=== PATIENT | female | born 1975 | race African-American/Black ===

== ENCOUNTER 2017-12-02 15:04 | Emergency (ER) | payer SELFPAY ==
[2017-12-02 15:50] LABS: Absolute Lymphocytes (CBC) 2.4 K/uL (0.7-4.9); Absolute Monocytes 0.7 K/uL (0.1-1.3); Basophils % 0.5 % (0-1.3); Eosinophils % 2.5 % (0-4.4); Lymphocytes % 20.9 % (15.3-44.8); MCH 21.5 pg (27.0-35.0); MCV 73.5 fL (80-100); MPV 8.8 fL (7.6-11.3); Monocytes % 5.8 % (3.3-12.3); RBC Red Blood Cell Count 3.13 M/uL (3.86-4.86)
[2017-12-02 16:01] LABS: Potassium 3.6 mmol/L (3.5-5.1)
[2017-12-02] MEDS ORDERED: NA CHLORIDE 0.9% 1,000 ML ONE (16:03)
[2017-12-02 16:43] LABS: Urine Blood 3+ (NEG); Urine Glucose NEGATIVE (NEG); Urine Protein 3+ (NEG); Urine Specific Gravity >1.030 (1.005-1.030); Urine pH 5.5 (5.0-7.0)
[2017-12-02 16:44] LABS: Anisocytosis 2+; Blood Morphology Comment NOTED (NOT SEEN); Hypochromasia 1+; Platelet Estimate ADEQ; Urine White Blood Cell Casts OK
[2017-12-02] MEDS ORDERED: ACETAMINOPHEN 325 MG TABLET ONE (17:05)
[2017-12-02] MEDS ORDERED: DIPHENHYDRAMINE 50 MG/ML VIAL ONE (17:05)
--- NOTE | 2017-12-02 17:16 | RAD REPORT ---
EXAM DESCRIPTION: US - Transvaginal Study Probe - 12/02/2017 4:44 pm CLINICAL HISTORY: Hyper menorrhagia, pelvic pain COMPARISON: None. TECHNIQUE: Endovaginal sonography was performed. FINDINGS: Endometrium in the fundus is 17 mm in thickness. Uterus overall is 13.3 x 8.0 x 7.0 cm. My ometrium is heterogeneous. At the lower uterine segment cervix junction there is a 5 x 4 centimeter h eterogeneous, predominantly echogenic mass. Doppler evaluation shows blood flow within this mass. Mas s is nonspecific. An endometrial based mass is certainly possible. A submucosal low-lying fibroid can have this appearance. No abnormal fluid or old blood collection within the endometrial cavity. The d ominant mass does not likely obstruct the endometrial canal. Both ovaries are identified. No abnormal blood flow pattern of either ovary. No dominant ovarian or a dnexal mass. No abnormal free fluid collection. IMPRESSION: Large 5 x 4 cm mass at the lower uterine segment cervix junction. This is most commonly a low positioned uterine fibroid. An endometrial based mass is also possible. Although large, the mas s does not appear to obstruct the endometrial cavity. No ovarian or adnexal significant finding.
[2017-12-02] MEDS ORDERED: NA CHLORIDE 0.9% 500 ML ONE (17:41)
[2017-12-02] MEDS ORDERED: NA CHLORIDE 0.9% 250 ML ONE (19:39)
[2017-12-02 22:59] LABS: Hematocrit 26.9 % (36.0-45.0)
--- NOTE | 2017-12-02 23:03 | ER ---
Nurse's Notes [facility] Name: Lisette Daniel Age: 42 yrs Sex: Female : 1975 Arrival Date: 12/02/2017 Time: 15:07 Bed 19 Private MD: None, None Diagnosis: Abnormal uterine and vaginal bleeding, unspecified;Leiomyoma of uterus;Iron deficiency anemia Presentation: 12/02 15:12 Presenting complaint: Patient states: Heavy vaginal bleeding for 2 days, reports aj syncopal episode yesterday. Reports slow vaginal bleeding for 2 years. Transition of care: patient was not received from another setting of care. Onset of symptoms was November 30, 2017. Risk Assessment: Do you want to hurt yourself or someone else? Patient reports no desire to harm self or others. Initial Sepsis Screen: Does the patient meet any 2 criteria? No. Patient's initial sepsis screen is negative. Does the patient have a suspected source of infection? No. Patient's initial sepsis screen is negative. Care prior to arrival: None. 15:12 Method Of Arrival: Ambulatory 15:12 Acuity: XU 3 aj Triage Assessment: 15:14 General: Appears in no apparent distress. comfortable, obese, Behavior is calm, aj cooperative, appropriate for age. Pain: Denies pain. Neuro: Level of Consciousness is awake, alert, obeys commands, Oriented to person, place, time, situation, Appropriate for age. Respiratory: Airway is patent Respiratory effort is even, unlabored, Respiratory pattern is regular, symmetrical. : Reports vaginal bleeding that is with clots, heavy flow. Derm: Skin is intact, is healthy with good turgor, Skin is pink, warm \T\ dry. normal. 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 - Social history:: Smoking status: Patient/guardian denies using tobacco. - Ebola Screening: : Patient negative for fever greater than or equal to 101.5 degrees Fahrenheit, and additional compatible Ebola Virus Disease symptoms Patient denies exposure to infectious person Patient denies travel to an Ebola-affected area in the 21 days before illness onset No symptoms or risks identified at this time. Screenin:49 Abuse screen: Denies threats or abuse. Nutritional screening: No deficits noted. em Tuberculosis screening: No symptoms or risk factors identified. Fall Risk None identified. Assessment: 15:21 General: Appears in no apparent distress. comfortable, Behavior is calm, cooperative. em Pain: Denies pain. Neuro: Level of Consciousness is awake, alert, obeys commands, Oriented to person, place, time, situation, Reports dizziness, weakness. Neuro: Reports a syncopal episode. Cardiovascular: Capillary refill < 3 seconds Patient's skin is warm and dry. Cardiovascular: Reports lightheadedness, shortness of breath, Denies chest pain. Respiratory: Airway is patent Respiratory effort is even, unlabored, Respiratory pattern is regular, symmetrical. GI: Abdomen is round obese, Abd is soft and non tender X 4 quads. : Urine is cloudy, blood tinged. : Reports vaginal bleeding that is light flow, since Sunday Denies burning with urination. Derm: Skin is intact, Skin is pink, warm \T\ dry. Musculoskeletal: Range of motion: intact in all extremities. 16:35 Reassessment: Patient appears in no apparent distress at this time. Patient and/or em family updated on plan of care and expected duration. Pain level reassessed. Patient is alert, oriented x 3, equal unlabored respirations, skin warm/dry/pink. pt consented for blood Patient denies pain at this time. 18:05 Reassessment: Patient appears in no apparent distress at this time. Patient and/or mg2 family updated on plan of care and expected duration. Pain level reassessed. Patient is alert, oriented x 3, equal unlabored respirations, skin warm/dry/pink. blood transfusion started. no reactions noted. 19:12 Reassessment: Patient appears in no apparent distress at this time. No changes from jd3 previously documented assessment. Patient and/or family updated on plan of care and expected duration. Pain level reassessed. Patient is alert, oriented x 3, equal unlabored respirations, skin warm/dry/pink. 20:15 Reassessment: Patient appears in no apparent distress at this time. Patient and/or jd3 family updated on plan of care and expected duration. Pain level reassessed. Patient is alert, oriented x 3, equal unlabored respirations, skin warm/dry/pink. 21:06 Reassessment: Patient appears in no apparent distress at this time. Patient and/or jd3 family updated on plan of care and expected duration. Pain level reassessed. Patient is alert, oriented x 3, equal unlabored respirations, skin warm/dry/pink. 22:11 Reassessment: Patient appears in no apparent distress at this time. Patient and/or jd3 family updated on plan of care and expected duration. Pain level reassessed. Patient is alert, oriented x 3, equal unlabored respirations, skin warm/dry/pink. provider reported to redraw H\T\H at 2245. Patient denies pain at this time. 23:30 Reassessment: Patient appears in no apparent distress at this time. Patient and/or jd3 family updated on plan of care and expected duration. Pain level reassessed. Patient is alert, oriented x 3, equal unlabored respirations, skin warm/dry/pink. Patient states feeling better. Vital Signs: 15:14 BP 155 / 72; Pulse 118; Resp 20; Temp 97.9; Pulse Ox 100% on R/A; Weight 127.01 kg; aj Height 5 ft. 1 in. (154.94 cm); 15:49 BP 165 / 74; Pulse 116; Resp 18; Pulse Ox 97% on R/A; Pain 0/10; em 16:54 BP 160 / 83; Pulse 112; Resp 19; Pulse Ox 100% on R/A; Pain 0/10; em 17:10 BP 158 / 87; Pulse 108; Resp 18; Temp 97.5(O); Pulse Ox 100% ; Pain 0/10; mg2 19:13 BP 116 / 60; Pulse 97; Resp 18 S; Pulse Ox 99% on R/A; jd3 20:00 BP 112 / 61; Pulse 94; Resp 17 S; Pulse Ox 98% on R/A; jd3 21:00 BP 113 / 54; Pulse 91; Resp 17 S; Pulse Ox 96% on R/A; jd3 22:11 BP 112 / 67; Pulse 93; Resp 17 S; Pulse Ox 99% on R/A; jd3 23:30 BP 114 / 78; Pulse 102; Resp 18 S; Pulse Ox 99% on R/A; jd3 15:14 Body Mass Index 52.90 (127.01 kg, 154.94 cm) aj ED Course: 15:07 Patient arrived in ED. mr 15:07 None, None is Private Physician. mr 15:14 Jaden Vela LVN is Primary Nurse. em 15:14 Triage completed. aj 15:14 Arm band placed on right wrist. Patient placed in an exam room. aj 15:20 Ender Bauman PA is PHCP. jr8 15:20 Antony Baxter MD is Attending Physician. jr8 15:20 Antony Baxter MD is Attending Physician. jr8 15:21 Patient has correct armband on for positive identification. Placed in gown. Bed in low em position. Call light in reach. Adult w/ patient. 15:49 Initial lab(s) drawn, by me, sent to lab. T\T\S collected, blood band applied to patient. em Inserted saline lock: 20 gauge in right antecubital area, using aseptic technique. Blood collected. 15:58 Notified Nurse Practitioner and/or Physician Wellness Ambassador of a critical lab result(s), la1 Hgb-6.7, Hct 23.0. 16:17 US Transvaginal Study (Probe) In Process Unspecified. EDMS 17:11 No provider procedures requiring assistance completed. mg2 23:01 Asmita Ramirez MD is Referral Physician. jr8 23:30 IV discontinued, intact, bleeding controlled, No redness/swelling at site. Pressure jd3 dressing applied. Administered Medications: 16:09 Drug: NS 0.9% 1000 ml Route: IV; Rate: 1 bolus; Site: right antecubital; em 19:46 Follow up: Response: No adverse reaction; IV Status: Completed infusion; fluids jd3 finished upon night supervisor arrival at 1900. 17:42 Drug: Benadryl 12.5 mg Route: IVP; Site: right antecubital; mg2 19:46 Follow up: Response: No adverse reaction jd3 17:42 Drug: Tylenol 650 mg Route: PO; mg2 19:46 Follow up: Response: No adverse reaction jd3 Intake: Outcome: 23:02 Discharge ordered by . jr8 23:29 Discharged to home ambulatory. jd3 23:29 Condition: stable 23:29 Discharge instructions given to patient, Instructed on discharge instructions, follow up and referral plans. medication usage, Demonstrated understanding of instructions, follow-up care, medications, Prescriptions given X 1. 23:32 Patient left the ED. jd3 Signatures: Dispatcher [employer] Kira Hoyos, RN Celine Fernández mr Vela, Jaden, CLUSTER BORE OPERATOR CLUSTER BORE OPERATOR Ender Callejas PA PA jr8 Bossman Casanova RN RN la1 Minesh Nieves RN RN jd3 Gardose, Michele, RN RN mg2 Corrections: (The following items were deleted from the chart) 22:12 22:11 Reassessment: Patient appears in no apparent distress at this time. Patient jd3 and/or family updated on plan of care and expected duration. Pain level reassessed. Patient is alert, oriented x 3, equal unlabored respirations, skin warm/dry/pink. Patient denies pain at this time. jd3
--- NOTE | 2017-12-02 23:03 | EDPHYS ---
Physician Documentation [facility] Name: Lisette Daniel Age: 42 yrs Sex: Female : 1975 Arrival Date: 12/02/2017 Time: 15:07 Bed 19 Private MD: None, None ED Physician Antony Baxter HPI: 12/02 16:41 This 42 yrs old Black Female presents to ER via Ambulatory with complaints of Vaginal jr8 Bleeding. 16:41 The patient presents with vaginal bleeding that is moderate, with clots. Onset: The jr8 symptoms/episode began/occurred gradually, 2 year(s) ago, and became worse 2 day(s) ago, and became persistent 2 days ago. Modifying factors: The symptoms are alleviated by nothing, the symptoms are aggravated by nothing. Associated signs and symptoms: Pertinent positives: shortness of breath, dizziness, fatigue . Severity of symptoms: At their worst the symptoms were moderate, in the emergency department the symptoms are unchanged. chronically. The patient has not recently seen a physician. 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 - Social history:: Smoking status: Patient/guardian denies using tobacco. - Ebola Screening: : Patient negative for fever greater than or equal to 101.5 degrees Fahrenheit, and additional compatible Ebola Virus Disease symptoms Patient denies exposure to infectious person Patient denies travel to an Ebola-affected area in the 21 days before illness onset No symptoms or risks identified at this time. ROS: 16:41 Eyes: Negative for injury, pain, redness, and discharge, ENT: Negative for injury, jr8 pain, and discharge, Neck: Negative for injury, pain, and swelling, Cardiovascular: Negative for chest pain, palpitations, and edema, Abdomen/GI: Negative for abdominal pain, nausea, vomiting, diarrhea, and constipation, Back: Negative for injury and pain, MS/Extremity: Negative for injury and deformity, Skin: Negative for injury, rash, and discoloration, Neuro: Negative for headache, weakness, numbness, tingling, and seizure. 16:41 Constitutional: Positive for fatigue. 16:41 Respiratory: Positive for dyspnea on exertion, shortness of breath, Negative for cough, orthopnea, pleurisy, sputum production, wheezing. Exam: 16:41 Head/Face: Normocephalic, atraumatic. ENT: Nares patent. No nasal discharge, no jr8 septal abnormalities noted. Tympanic membranes are normal and external auditory canals are clear. Oropharynx with no redness, swelling, or masses, exudates, or evidence of obstruction, uvula midline. Mucous membranes moist. Neck: Trachea midline, no thyromegaly or masses palpated, and no cervical lymphadenopathy. Supple, full range of motion without nuchal rigidity, or vertebral point tenderness. No Meningismus. Cardiovascular: Sinus Tachycardia with a normal S1 and S2. No gallops, murmurs, or rubs. Normal PMI, no JVD. No pulse deficits. Respiratory: Lungs have equal breath sounds bilaterally, clear to auscultation and percussion. No rales, rhonchi or wheezes noted. No increased work of breathing, no retractions or nasal flaring. Abdomen/GI: Soft, non-tender, with normal bowel sounds. No distension or tympany. No guarding or rebound. No evidence of tenderness throughout. Back: No spinal tenderness. No costovertebral tenderness. Full range of motion. Skin: Warm, dry with normal turgor. Normal color with no rashes, no lesions, and no evidence of cellulitis. MS/ Extremity: Pulses equal, no cyanosis. Neurovascular intact. Full, normal range of motion. Neuro: Awake and alert, GCS 15, oriented to person, place, time, and situation. Cranial nerves II-XII grossly intact. Motor strength 5/5 in all extremities. Sensory grossly intact. Cerebellar exam normal. Normal gait. 16:41 Eyes: Periorbital structures: appear normal, Pupils: equal, round, and reactive to light and accomodation, Extraocular movements: intact throughout, Conjunctiva: pale, bilaterally, Sclera: no appreciated abnormality, Anterior chamber: normal, Lids and lashes: appear normal. Vital Signs: 15:14 BP 155 / 72; Pulse 118; Resp 20; Temp 97.9; Pulse Ox 100% on R/A; Weight 127.01 kg; aj Height 5 ft. 1 in. (154.94 cm); 15:49 BP 165 / 74; Pulse 116; Resp 18; Pulse Ox 97% on R/A; Pain 0/10; em 16:54 BP 160 / 83; Pulse 112; Resp 19; Pulse Ox 100% on R/A; Pain 0/10; em 17:10 BP 158 / 87; Pulse 108; Resp 18; Temp 97.5(O); Pulse Ox 100% ; Pain 0/10; mg2 19:13 BP 116 / 60; Pulse 97; Resp 18 S; Pulse Ox 99% on R/A; jd3 20:00 BP 112 / 61; Pulse 94; Resp 17 S; Pulse Ox 98% on R/A; jd3 21:00 BP 113 / 54; Pulse 91; Resp 17 S; Pulse Ox 96% on R/A; jd3 22:11 BP 112 / 67; Pulse 93; Resp 17 S; Pulse Ox 99% on R/A; jd3 23:30 BP 114 / 78; Pulse 102; Resp 18 S; Pulse Ox 99% on R/A; jd3 15:14 Body Mass Index 52.90 (127.01 kg, 154.94 cm) aj MDM: 15:29 Patient medically screened. [facility] 16:43 Data reviewed: vital signs, nurses notes, lab test result(s), radiologic studies, [facility] ultrasound. Data interpreted: Pulse oximetry: on room air is 97 %. Interpretation: normal. Counseling: I had a detailed discussion with the patient and/or guardian regarding: the historical points, exam findings, and any diagnostic results supporting the discharge/admit diagnosis, lab results, radiology results, the need for outpatient follow up, an OB/Gyne specialist. ED course: Discussed with patient that we are going to transfuse her here and send her home. Must f/u with Gynecology for further evaluation of uterine bleeding. Patient is good with this and would follow up . 23:01 ED course: H/H increased. Patient feeling better. To f/u with gynecology . [facility] 12/02 15:28 Order name: Basic Metabolic Panel; Complete Time: 16:08 8 12/02 15:28 Order name: CBC with Diff; Complete Time: 16:45 8 12/02 15:28 Order name: TS [facility] 12/02 15:51 Order name: Urine Dipstick--Ancillary (enter results); Complete Time: 16:45 12/02 15:51 Order name: Urine --Ancillary (enter results); Complete Time: 16:45 12/02 15:59 Order name: CBC Smear Scan; Complete Time: 16:45 [facility] 12/02 15:29 Order name: US Transvaginal Study (Probe); Complete Time: 17:23 [facility] 12/02 16:13 Order name: Bb Add On 12/02 16:53 Order name: Packed RBC Leukored -1 [facility] 12/02 17:20 Order name: ABO/RH no charge; Complete Time: 17:23 [facility] 12/02 22:37 Order name: Hematocrit; Complete Time: 23:00 [facility] 12/02 22:37 Order name: Hemoglobin; Complete Time: 23:00 [facility] 12/02 15:28 Order name: Urine Test (obtain specimen); Complete Time: 15:44 [facility] 12/02 15:28 Order name: IV Saline Lock; Complete Time: 15:49 [facility] 12/02 15:28 Order name: Labs collected and sent; Complete Time: 15:30 [facility] 12/02 15:28 Order name: NPO; Complete Time: 15:30 [facility] 12/02 15:28 Order name: Urine Dipstick-Ancillary (obtain specimen); Complete Time: 15:44 jr Administered Medications: 16:09 Drug: NS 0.9% 1000 ml Route: IV; Rate: 1 bolus; Site: right antecubital; em 19:46 Follow up: Response: No adverse reaction; IV Status: Completed infusion; fluids jd3 finished upon car shifter arrival at 1900. 17:42 Drug: Benadryl 12.5 mg Route: IVP; Site: right antecubital; mg2 19:46 Follow up: Response: No adverse reaction jd3 17:42 Drug: Tylenol 650 mg Route: PO; mg2 19:46 Follow up: Response: No adverse reaction jd3 Disposition: 12/03 09:21 Co-signature as Attending Physician, Antony Baxter MD I agree with the assessment and roberto plan of care. Disposition: 12/02/17 23:02 Discharged to Home. Impression: Abnormal uterine and vaginal bleeding, unspecified, Leiomyoma of uterus, Iron deficiency anemia. - Condition is Stable. - Discharge Instructions: Abnormal Uterine Bleeding, Iron Deficiency Anemia, Adult. - Prescriptions for Ferrous Sulfate 325 mg (65 mg Iron) Oral Tablet - take 1 tablet by ORAL route every 8 hours; 90 tablet. - Medication Reconciliation Form, Thank You Letter, Antibiotic Education, Prescription Opioid Use form. - Follow up: Asmita Ramirez MD; When: 2 - 3 days; Reason: Recheck today's complaints, Continuance of care, Re-evaluation by your physician. - Problem is new. - Symptoms have improved. Signatures: Dispatcher [employer] Kira Hoyos RN RN Antony Gleason MD MD cha Munoz, Edgar, NONPROFIT DIRECTOR NONPROFIT DIRECTOR em Ender Bauman PA PA jr8 Minesh Nieves RN RN jd3 Ismael Colby RN RN mg2 Corrections: (The following items were deleted from the chart) 12/02 23:04 23:02 12/02/2017 23:02 Discharged to Home. Impression: Abnormal uterine and vaginal jr8 bleeding, unspecified; Leiomyoma of uterus. Condition is Stable. Forms are Medication Reconciliation Form, Thank You Letter, Antibiotic Education, Prescription Opioid Use. Follow up: Asmita Ramirez; When: 2 - 3 days; Reason: Recheck today's complaints, Continuance of care, Re-evaluation by your physician. Problem is new. Symptoms have improved. jr8 23:32 23:04 12/02/2017 23:02 Discharged to Home. Impression: Abnormal uterine and vaginal jd3 bleeding, unspecified; Leiomyoma of uterus; Iron deficiency anemia. Condition is Stable. Discharge Instructions: Abnormal Uterine Bleeding, Iron Deficiency Anemia, Adult. Prescriptions for Ferrous Sulfate 325 mg (65 mg Iron) Oral Tablet - take 1 tablet by ORAL route every 8 hours; 90 tablet. and Forms are Medication Reconciliation Form, Thank You Letter, Antibiotic Education, Prescription Opioid Use. Follow up: Asmita Ramirez; When: 2 - 3 days; Reason: Recheck today's complaints, Continuance of care, Re-evaluation by your physician. Problem is new. Symptoms have improved. jr8
== END 2017-12-02 23:32 | disposition home or self-care (01) ==
LOC: ER 15:04
DX: N93.9 Abnormal uterine and vaginal bleeding, unspecified (principal); D25.9 Leiomyoma of uterus, unspecified; D50.9 Iron deficiency anemia, unspecified
CPT/HCPCS: 36415; 76830; 80048; 81003; 81025; 85014; 85018; 85025; 86850; 86900; 86901; 96361; 96374; 99284; J7030; P9016

== ENCOUNTER 2018-01-21 18:19 | Emergency (ER) | payer SELFPAY ==
[2018-01-21 21:10] LABS: Urine Blood 2+ (NEG); Urine Glucose NEGATIVE (NEG); Urine Protein 1+ (NEG); Urine Specific Gravity 1.025 (1.005-1.030)
[2018-01-21 21:40] LABS: Urine Bacteria <20 /HPF (<20); Urine Culture Reflex Order NOT NEEDED; Urine RBC 20-50 /HPF (NONE SEEN)
--- NOTE | 2018-01-21 21:42 | RAD REPORT ---
EXAM DESCRIPTION: CT - Stone Protocol - 01/21/2018 9:30 pm CLINICAL HISTORY: Left-sided back pain, left-sided flank pain, vomiting and diarrhea COMPARISON: Pelvic ultrasound December 02. TECHNIQUE: Axial 5 mm thick images were obtained without oral or IV contrast. The [id number] span s the entirety of the system including uppermost abdomen and lung bases. All CT scans are performed using dose optimization technique as appropriate and may include automated exposure control or mA/KV adjustment according to patient size. FINDINGS: No hydronephrosis is present and no obstructing ureteral calculi. No suspicious renal mass es. Isodense masses and pyelonephritis are not excluded on a stone protocol CT scan. No urinary bladd er suspicious finding. Prominent bulky uterus is present likely containing fibroids. There is masslike fullness in the cervi x or lower uterine segment. A mass was seen at sonography that is probably a low positioned fibroid. CT has inherent limitation in the region of the cervix and lower uterine segment. No suspicion for ov javier abnormality. Imaged portions of the liver, spleen and pancreas show no suspicious findings on non-contrast imaging . Cholecystectomy clips are present. No biliary tree dilatation. No significant adrenal finding. No suspicious bowel findings. No mass or bulky lymphadenopathy. Small fat only umbilical hernia present. No free air, free fluid or inflammatory stranding. No significant bony abnormality. IMPRESSION: No hydronephrosis, obstructing calculus or acute finding. Isodense masses and pyelonephritis are not excluded on stone protocol technique. No acute GI process seen. Bulky multi fibroid uterus is present similar to the recent ultrasound. No acute ovarian process susp ected.
--- NOTE | 2018-01-21 21:44 | ER ---
Nurse's Notes [facility] Name: Lisette Daniel Age: 42 yrs Sex: Female : 1975 Arrival Date: 01/21/2018 Time: 18:21 Bed 24 Private MD: Diagnosis: Abdominal and pelvic pain Presentation: 01/21 18:42 Presenting complaint: Patient states: pain to left side of back and left side of neck aa5 that began approximately 2 hours [employer]. Pt reports nausea, denies vomiting, denies diarrhea. Transition of care: patient was not received from another setting of care. Onset of symptoms was January 21, 2018. Risk Assessment: Do you want to hurt yourself or someone else? Patient reports no desire to harm self or others. Initial Sepsis Screen: Does the patient meet any 2 criteria? No. Patient's initial sepsis screen is negative. Does the patient have a suspected source of infection? No. Patient's initial sepsis screen is negative. Care prior to arrival: None. 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 - Social history:: Smoking status: Patient/guardian denies using tobacco. - Ebola Screening: : No symptoms or risks identified at this time. Screenin:56 Abuse screen: Denies threats or abuse. Nutritional screening: No deficits noted. tl3 Tuberculosis screening: No symptoms or risk factors identified. Fall Risk None identified. Assessment: 18:56 General: Appears uncomfortable, well groomed, well developed, well nourished, Behavior tl3 is calm, cooperative, appropriate for age. Pain: Complains of pain in left low back, left mid back and abdomen. Neuro: Level of Consciousness is awake, alert, obeys commands, Oriented to person, place, time, situation, Appropriate for age. Cardiovascular: Patient's skin is warm and dry. Respiratory: Airway is patent Respiratory effort is even, unlabored, Respiratory pattern is regular, symmetrical. GI: Bowel sounds present X 4 quads. Abd is soft Abdomen is tender to palpation. : No signs and/or symptoms were reported regarding the genitourinary system. : Reports vaginal bleeding that is since on going issue, required a blood transfusion earlier in the year. Possible cause of excessive bleeding is uterine fibroids. EENT: No signs and/or symptoms were reported regarding the EENT system. Derm: No signs and/or symptoms reported regarding the dermatologic system. Musculoskeletal: Reports pain in left low back and left mid back Pain is 8 out of 10 on a pain scale. 20:12 Reassessment: No changes from previously documented assessment. Patient and/or family tl3 updated on plan of care and expected duration. Pain level reassessed. Patient is alert, oriented x 3, equal unlabored respirations, skin warm/dry/pink. pt ambulated to restroom for urine collection. 21:14 Reassessment: No changes from previously documented assessment. Patient and/or family tl3 updated on plan of care and expected duration. Pain level reassessed. Patient is alert, oriented x 3, equal unlabored respirations, skin warm/dry/pink. Vital Signs: 18:44 BP 152 / 81; Pulse 104; Resp 18 S; Temp 99.3(O); Pulse Ox 100% on R/A; Weight 135.62 kg aa5 (R); Height 5 ft. 1 in. (154.94 cm) (R); Pain 8/10; 20:12 BP 157 / 75; Pulse 106; Resp 18; Pulse Ox 95% on R/A; tl3 21:14 BP 108 / 50; Pulse 93; Resp 18; Pulse Ox 99% on R/A; tl3 21:56 BP 126 / 55; Pulse 108; Resp 18; Pulse Ox 97% on R/A; tl3 18:44 Body Mass Index 56.49 (135.62 kg, 154.94 cm) aa5 ED Course: 18:21 Patient arrived in ED. mr 18:23 Son[facility] Lechuga F[facility]-C [facility]. snw 18:23 Antony Baxter MD is Attending Physician. snw 18:43 Triage completed. aa5 18:43 Arm band placed on. aa5 18:53 Olimpia Cordero, SUSSY is Primary Nurse. tl3 18:56 Patient has correct armband on for positive identification. Placed in gown. Bed in low tl3 position. Call light in reach. Side rails up X 1. Adult w/ patient. 18:56 No provider procedures requiring assistance completed. tl3 21:30 CT Stone Protocol In Process Unspecified. EDMS 21:56 Patient did not have IV access during this emergency room visit. tl3 Administered Medications: No medications were administered Outcome: 21:44 Discharge ordered by . tarun 21:56 Discharged to home ambulatory. tl3 21:56 Condition: stable 21:56 Discharge instructions given to patient, Instructed on discharge instructions, follow up and referral plans. medication usage, Demonstrated understanding of instructions, follow-up care, medications, Prescriptions given X 2. 22:00 Patient left the ED. tl3 Signatures: Dispatcher [employer] EDDE Soni Lechuga, EMAIL ENGINEER-C EMAIL ENGINEER-Lexis oLbitoRadha mr Varela, Deanne, RN RN dalton5 Olimpia Cordero RN RN tl3 Corrections: (The following items were deleted from the chart) 18:45 18:44 PMHx: None; aa5 aa5 20:28 20:12 Pulse 106bpm; Resp 18bpm; Pulse Ox 95% RA; tl3 tl3 21:56 21:56 Reassessment: tl3 tl3
--- NOTE | 2018-01-21 21:44 | EDPHYS ---
Physician Documentation [facility] Name: Lisette Daniel Age: 42 yrs Sex: Female : 1975 Arrival Date: 01/21/2018 Time: 18:21 Bed 24 Private MD: ED Physician Antony Baxter HPI: 01/21 19:47 This 42 yrs old Black Female presents to ER via Wheelchair with complaints of Abdominal snw Pain, Back Pain. 19:47 The patient presents with abdominal pain in the left lower quadrant, left flank. Onset: snw The symptoms/episode began/occurred suddenly, at 13:00. The symptoms do not radiate. Associated signs and symptoms: none. The symptoms are described as steady. Severity of pain: At its worst the pain was moderate. It is unknown whether or not the patient has had similar symptoms in the past. dx with fibroids, unable to say when LMP occurred. [employer]: 18:44 LMP N/A - Irregular menses aa5 Historical: - Allergies: 18:44 No Known Allergies; aa5 - Home Meds: 18:44 None [Active]; aa5 - PMHx: 18:45 fibroids; aa5 - PSHx: 18:43 ; aa5 - Immunization history:: Adult Immunizations up to date. - Social history:: Smoking status: Patient/guardian denies using tobacco. - Ebola Screening: : No symptoms or risks identified at this time. ROS: 19:47 Constitutional: Negative for fever, chills, and weight loss, Eyes: Negative for injury, snw pain, redness, and discharge, ENT: Negative for injury, pain, and discharge, Neck: Negative for injury, pain, and swelling, Cardiovascular: Negative for chest pain, palpitations, and edema, Respiratory: Negative for shortness of breath, cough, wheezing, and pleuritic chest pain, Abdomen/GI: Negative for abdominal pain, nausea, vomiting, diarrhea, and constipation, : Negative for injury, bleeding, discharge, and swelling, MS/Extremity: Negative for injury and deformity, Skin: Negative for injury, rash, and discoloration, Neuro: Negative for headache, weakness, numbness, tingling, and seizure. 19:47 Back: Positive for pain at rest, flank pain, on the left. Exam: 19:45 Constitutional: This is a well developed, well nourished patient who is awake, alert, snw and in no acute distress. Head/Face: Normocephalic, atraumatic. Eyes: Pupils equal round and reactive to light, extra-ocular motions intact. Lids and lashes normal. Conjunctiva and sclera are non-icteric and not injected. Cornea within normal limits. Periorbital areas with no swelling, redness, or edema. ENT: Nares patent. No nasal discharge, no septal abnormalities noted. Tympanic membranes are normal and external auditory canals are clear. Oropharynx with no redness, swelling, or masses, exudates, or evidence of obstruction, uvula midline. Mucous membranes moist. Neck: Trachea midline, no thyromegaly or masses palpated, and no cervical lymphadenopathy. Supple, full range of motion without nuchal rigidity, or vertebral point tenderness. No Meningismus. Chest/axilla: Normal chest wall appearance and motion. Nontender with no deformity. No lesions are appreciated. Cardiovascular: Regular rate and rhythm with a normal S1 and S2. No gallops, murmurs, or rubs. Normal PMI, no JVD. No pulse deficits. Respiratory: Lungs have equal breath sounds bilaterally, clear to auscultation and percussion. No rales, rhonchi or wheezes noted. No increased work of breathing, no retractions or nasal flaring. Abdomen/GI: Soft, non-tender, with normal bowel sounds. No distension or tympany. No guarding or rebound. No evidence of tenderness throughout. Skin: Warm, dry with normal turgor. Normal color with no rashes, no lesions, and no evidence of cellulitis. MS/ Extremity: Pulses equal, no cyanosis. Neurovascular intact. Full, normal range of motion. Neuro: Awake and alert, GCS 15, oriented to person, place, time, and situation. Cranial nerves II-XII grossly intact. Motor strength 5/5 in all extremities. Sensory grossly intact. Cerebellar exam normal. Normal gait. 19:45 Back: pain, that is moderate, CVA tenderness, that is mild, is noted on the left. Vital Signs: 18:44 BP 152 / 81; Pulse 104; Resp 18 S; Temp 99.3(O); Pulse Ox 100% on R/A; Weight 135.62 kg aa5 (R); Height 5 ft. 1 in. (154.94 cm) (R); Pain 8/10; 20:12 BP 157 / 75; Pulse 106; Resp 18; Pulse Ox 95% on R/A; tl3 21:14 BP 108 / 50; Pulse 93; Resp 18; Pulse Ox 99% on R/A; tl3 21:56 BP 126 / 55; Pulse 108; Resp 18; Pulse Ox 97% on R/A; tl3 18:44 Body Mass Index 56.49 (135.62 kg, 154.94 cm) aa5 MDM: 18:57 Patient medically screened. snw 21:45 Data reviewed: vital signs, nurses notes. Data interpreted: Pulse oximetry: on room air snw is 99 %. Interpretation: normal. Counseling: I had a detailed discussion with the patient and/or guardian regarding: the historical points, exam findings, and any diagnostic results supporting the discharge/admit diagnosis, lab results, radiology results, the need for outpatient follow up, to return to the emergency department if symptoms worsen or persist or if there are any questions or concerns that arise at home. Special discussion: Based on the patient's Hx, exam, and Dx evaluation, there is no indication for emergent surgery or inpatient Tx. It is understood by the patient/guardian that if the Sx's persist or worsen they need to return immediately for re-evaluation. Based on the history and exam findings, there is no indication for further emergent testing or inpatient evaluation. I discussed with the patient/guardian the need to see the OB Gyne specialist for further evaluation of the symptoms. 01/21 18:28 Order name: Urine Culture snw 01/21 18:28 Order name: Urine Microscopic Only; Complete Time: 21:42 snw 01/21 18:28 Order name: Urine Test (obtain specimen); Complete Time: 20:11 snw 01/21 20:27 Order name: Urine Dipstick--Ancillary (enter results); Complete Time: 21:11 ms 01/21 20:27 Order name: Urine --Ancillary (enter results); Complete Time: 21:11 ms 01/21 21:03 Order name: CT Stone Protocol; Complete Time: 21:42 snw 01/21 18:28 Order name: Urine Dipstick-Ancillary (obtain specimen); Complete Time: 20:12 snw Administered Medications: No medications were administered Disposition: 01/22 07:40 Co-signature as Attending Physician, Antony Baxter MD I agree with the assessment and roberto plan of care. Disposition: 01/21/18 21:44 Discharged to Home. Impression: Abdominal and pelvic pain. - Condition is Stable. - Discharge Instructions: Abdominal Pain, Adult, Uterine Fibroids, Pelvic Pain, Female. - Prescriptions for Vitamin 27- 0.8 mg Oral Tablet - take 1 tablet by ORAL route once daily; 60 tablet. Diclofenac Sodium 75 mg Oral Tablet Sustained Release - take 1 tablet by ORAL route 2 times per day; 30 tablet. - Medication Reconciliation Form, Thank You Letter, Antibiotic Education, Prescription Opioid Use form. - Follow up: Private Physician; When: 1 - 2 days; Reason: Recheck today's complaints, Continuance of care, Re-evaluation by your physician. Follow up: Emergency Department; When: As needed; Reason: Worsening of condition. Signatures: Dispatcher [employer] EDAntony Rios MD MD cha Therrien, Shelly, GRAIN BROKER AND MARKET OPERATOR-C GRAIN BROKER AND MARKET OPERATOR-Csnw Deanne Varela, RN RN Olimpia Frey, RN RN tl3 Corrections: (The following items were deleted from the chart) 01/21 18:45 18:44 PMHx: None; [place] 22:00 21:44 01/21/2018 21:44 Discharged to Home. Impression: Abdominal and pelvic pain. tl3 Condition is Stable. Forms are Medication Reconciliation Form, Thank You Letter, Antibiotic Education, Prescription Opioid Use. Follow up: Private Physician; When: 1 - 2 days; Reason: Recheck today's complaints, Continuance of care, Re-evaluation by your physician. Follow up: Emergency Department; When: As needed; Reason: Worsening of condition. snw
== END 2018-01-21 22:00 | disposition home or self-care (01) ==
LOC: ER 18:19
DX: R10.2 Pelvic and perineal pain (principal)
CPT/HCPCS: 74176; 76377; 81003; 81015; 81025; 87086; 87088; 99283

== ENCOUNTER 2018-04-01 23:46 | Observation (INO) | payer SELFPAY ==
[2018-04-02] MEDS ORDERED: NA CHLORIDE 0.9% 1,000 ML ONE (00:16)
[2018-04-02 00:47] LABS: Absolute Lymphocytes (CBC) 2.9 K/uL (0.7-4.9); Absolute Monocytes 0.9 K/uL (0.1-1.3); Basophils % 0.4 % (0-1.3); Eosinophils % 2.7 % (0-4.4); Hematocrit 22.9 % (36.0-45.0); Lymphocytes % 25.8 % (15.3-44.8); MCH 19.6 pg (27.0-35.0); MCV 67.3 fL (80-100); MPV 8.4 fL (7.6-11.3); Monocytes % 8.4 % (3.3-12.3)
[2018-04-02 00:54] LABS: Potassium 3.5 mmol/L (3.5-5.1)
--- NOTE | 2018-04-02 00:58 | ER ---
Nurse's Notes [facility] Name: Lisette Daniel Age: 42 yrs Sex: Female : 1975 Arrival Date: 04/01/2018 Time: 23:49 Bed 18 Private MD: Diagnosis: Syncope and collapse;Anemia, unspecified;Abnormal uterine and vaginal bleeding, unspecified Presentation: 04/01 23:50 Presenting complaint: son states that the patient was in the bathroom when she felt cc3 dizzy then fell down and hit her forehead in the wall, had loss of consciousness then regained it and passed out again. Complains of vaginal bleeding as well. Transition of care: patient was not received from another setting of care. Onset of symptoms was April 01, 2018. Risk Assessment: Do you want to hurt yourself or someone else? Patient reports no desire to harm self or others. Initial Sepsis Screen: Does the patient meet any 2 criteria? No. Patient's initial sepsis screen is negative. Does the patient have a suspected source of infection? No. Patient's initial sepsis screen is negative. Care prior to arrival: None. 23:50 Method Of Arrival: Wheelchair cc3 23:50 Acuity: XU 3 cc3 [employer]: 04/02 02:55 LMP N/A - Irregular menses jd3 Historical: - Allergies: 04/01 23:50 No Known Allergies; cc3 - PMHx: 23:50 fibroids; cc3 - PSHx: 23:50 gall stones removal; ; cc3 - Immunization history:: Adult Immunizations up to date. - Social history:: Smoking status: Patient/guardian denies using tobacco, never smoked. - Ebola Screening: : No symptoms or risks identified at this time. Screenin/18 00:05 Abuse screen: Denies threats or abuse. Nutritional screening: No deficits noted. jd3 Tuberculosis screening: No symptoms or risk factors identified. Fall Risk Fall in past 12 months (25 points). Ambulatory Aid- None/Bed Rest/Nurse Assist (0 pts). Gait- Weak (10 pts.). Mental Status- Oriented to own ability (0 pts). Total Joseph Fall Scale indicates Low Risk Score (25-44 pts). Fall prevention measures have been instituted. Side Rails Up X 2 Placed close to Nursing Station Frequent Obs/Assesments occuring Family Present and informed to notify staff if they need to leave bedside. Assessment: 00:03 General: Appears uncomfortable, Behavior is cooperative, appropriate for age, anxious. jd3 Pain: Denies pain. Neuro: Level of Consciousness is awake, alert, obeys commands, Oriented to person, place, time, situation, Appropriate for age Reports dizziness, a syncopal episode weakness. Cardiovascular: Heart tones S1 S2 present Capillary refill < 3 seconds Patient's skin is warm and dry. Respiratory: Airway is patent Respiratory effort is even, unlabored, Respiratory pattern is regular, symmetrical, Breath sounds are clear bilaterally. GI: Abdomen is round Bowel sounds present X 4 quads. Abd is soft and non tender X 4 quads. Reports nausea. : No signs and/or symptoms were reported regarding the genitourinary system. EENT: No signs and/or symptoms were reported regarding the EENT system. Derm: Skin is intact, Skin is dry, Skin is normal, Skin temperature is warm. Musculoskeletal: Circulation, motion, and sensation intact. Range of motion: intact in all extremities. 01:00 Reassessment: Patient appears in no apparent distress at this time. Patient and/or jd3 family updated on plan of care and expected duration. Pain level reassessed. Patient is alert, oriented x 3, equal unlabored respirations, skin warm/dry/pink. 02:00 Reassessment: Patient appears in no apparent distress at this time. Patient and/or jd3 family updated on plan of care and expected duration. Pain level reassessed. Patient is alert, oriented x 3, equal unlabored respirations, skin warm/dry/pink. blood transfusion started, see blood charting. Vital Signs: 04/01 23:50 BP 123 / 68; Pulse 116; Resp 20 S; Temp 98(O); Pulse Ox 95% on R/A; Weight 129.73 kg cc3 (R); Height 5 ft. 1 in. (154.94 cm) (R); 04/02 00:44 BP 131 / 60 Supine; Pulse 108; ag4 00:44 BP 133 / 72 Sitting; Pulse 109; ag4 00:44 BP 108 / 88 Standing; Pulse 129; ag4 01:47 BP 112 / 71; Pulse 102; Resp 17; Pulse Ox 98% on R/A; jd3 02:05 BP 112 / 85; Pulse 104; Resp 17 S; Pulse Ox 99% on R/A; jd3 04/01 23:50 Body Mass Index 54.04 (129.73 kg, 154.94 cm) cc3 ED Course: 04/01 23:49 Patient arrived in ED. am2 23:51 Ranjana Stevens is Primary Nurse. cc3 23:52 Minesh Nieves RN is Primary Nurse. jd3 23:56 Fad[facility] Treadwell [facility]-C [facility]. kb 23:56 Neri Brewster MD is Attending Physician. kb 04/02 00:04 Patient has correct armband on for positive identification. Bed in low position. Call jd3 light in reach. Side rails up X2. Adult w/ patient. 00:05 Triage completed. cc3 00:05 Arm band placed on. jd3 00:25 Inserted saline lock: 22 gauge in left antecubital area, using aseptic technique. Blood jd3 collected. 00:57 Donald Cedillo MD is Hospitalizing Provider. kb 02:55 No provider procedures requiring assistance completed. Patient admitted, IV remains in jd3 place. Administered Medications: 00:31 Drug: NS 0.9% 1000 ml Route: IV; Rate: 1000 ml; Site: left antecubital; jd3 02:55 Follow up: Response: No adverse reaction; IV Status: Completed infusion jd3 Outcome: 00:57 Decision to Hospitalize by Provider. kb 02:55 Admitted to Med/surg accompanied by nurse, accompanied by tech, via stretcher, room jd3 205, with chart, Report called to Yohannes [place] 02:55 Condition: stable 02:55 Instructed on the need for admit, Demonstrated understanding of instructions. 02:59 Patient left the ED. jd3 Signatures: Fadia Treadwell FNP-C FNP-CkKira Neves am2 Minesh Nieves RN RN jd3 Ranjana Stevens cc3 Andrade Roach ag4 Corrections: (The following items were deleted from the chart) 00:08 04/01 23:50 Presenting complaint: son states that the patient was in the bathroom when cc3 she felt dizzy then fell down and hit her forehead in the wall, had loss of consciousness then regained it and passed out again. Complains of vaginal bleeding as well. cc3
--- NOTE | 2018-04-02 00:58 | EDPHYS ---
Physician Documentation [facility] Name: Lisette Daniel Age: 42 yrs Sex: Female : 1975 Arrival Date: 04/01/2018 Time: 23:49 Bed 18 Private MD: ED Physician Neri Brewster HPI: 04/02 01:00 This 42 yrs old Black Female presents to ER via Wheelchair with complaints of Fall kb Injury. 01:01 The patient has experienced syncope, collapsed. Onset: The symptoms/episode kb began/occurred just prior to arrival. Duration: The patient has had multiple episodes. Context: the episode(s) was witnessed, by family, occurred at home, occurred while the patient was changing positions. Just prior to the episode the patient experienced no apparent symptoms. Associated injury: The patient did not suffer any apparent associated injury. Associated signs and symptoms: Pertinent positives: weakness, fatigue. Current symptoms: Currently, the patient is not experiencing any symptoms, the patient feels back to baseline, no decreased level of consciousness, no confusion, no dysphasia, no headache, no paralysis, no visual changes. The patient has not experienced similar symptoms in the past. The patient has not recently seen a physician. Pt reports she has fibroids and has had vaginal bleeding since November. Reports she has seen REHABILITATION TECHNICIAN for this and given medications to help the bleeding, but they haven't worked. States the REHABILITATION TECHNICIAN told her she needed a hysterectomy, but since she doesn't have insurance they aren't doing it. Is working on paperwork for a program at [facility] to have hysterectomy. States she was on the toilet and passed out when she tried to stand up. + brief LOC according to family that heard her in the bathroom. Pt reports she feels tired now. . BALLOON PILOT: 02:55 LMP N/A - Irregular menses jd3 Historical: - Allergies: 04/01 23:50 No Known Allergies; cc3 - PMHx: 23:50 fibroids; cc3 - PSHx: 23:50 gall stones removal; ; cc3 - Immunization history:: Adult Immunizations up to date. - Social history:: Smoking status: Patient/guardian denies using tobacco, never smoked. - Ebola Screening: : No symptoms or risks identified at this time. ROS: 04/02 01:01 Constitutional: Negative for fever, chills, and weight loss, ENT: Negative for injury, kb pain, and discharge, Neck: Negative for injury, pain, and swelling, Cardiovascular: Negative for chest pain, palpitations, and edema, Respiratory: Negative for shortness of breath, cough, wheezing, and pleuritic chest pain, Abdomen/GI: Negative for abdominal pain, nausea, vomiting, diarrhea, and constipation, Back: Negative for injury and pain, MS/Extremity: Negative for injury and deformity, Skin: Negative for injury, rash, and discoloration. : Positive for vaginal bleeding. Neuro: Positive for syncope. Exam: : Constitutional: This is a well developed, well nourished patient who is awake, alert, kb and in no acute distress. Head/Face: Normocephalic, atraumatic. ENT: Nares patent. No nasal discharge, no septal abnormalities noted. Tympanic membranes are normal and external auditory canals are clear. Oropharynx with no redness, swelling, or masses, exudates, or evidence of obstruction, uvula midline. Mucous membranes moist. Neck: Trachea midline, no thyromegaly or masses palpated, and no cervical lymphadenopathy. Supple, full range of motion without nuchal rigidity, or vertebral point tenderness. No Meningismus. Chest/axilla: Normal chest wall appearance and motion. Nontender with no deformity. No lesions are appreciated. Cardiovascular: Regular rate and rhythm with a normal S1 and S2. No gallops, murmurs, or rubs. Normal PMI, no JVD. No pulse deficits. Respiratory: Lungs have equal breath sounds bilaterally, clear to auscultation and percussion. No rales, rhonchi or wheezes noted. No increased work of breathing, no retractions or nasal flaring. Abdomen/GI: Soft, non-tender, with normal bowel sounds. No distension or tympany. No guarding or rebound. No evidence of tenderness throughout. Skin: Warm, dry with normal turgor. Normal color with no rashes, no lesions, and no evidence of cellulitis. MS/ Extremity: Pulses equal, no cyanosis. Neurovascular intact. Full, normal range of motion. Neuro: Awake and alert, GCS 15, oriented to person, place, time, and situation. Cranial nerves II-XII grossly intact. Motor strength 5/5 in all extremities. Sensory grossly intact. Cerebellar exam normal. Normal gait. Vital Signs: 04/01 23:50 BP 123 / 68; Pulse 116; Resp 20 S; Temp 98(O); Pulse Ox 95% on R/A; Weight 129.73 kg cc3 (R); Height 5 ft. 1 in. (154.94 cm) (R); 04/02 00:44 BP 131 / 60 Supine; Pulse 108; ag4 00:44 BP 133 / 72 Sitting; Pulse 109; ag4 00:44 BP 108 / 88 Standing; Pulse 129; ag4 01:47 BP 112 / 71; Pulse 102; Resp 17; Pulse Ox 98% on R/A; jd3 02:05 BP 112 / 85; Pulse 104; Resp 17 S; Pulse Ox 99% on R/A; jd3 04/01 23:50 Body Mass Index 54.04 (129.73 kg, 154.94 cm) cc3 MDM: 04/01 23:56 Patient medically screened. kb 04/02 00:56 Data reviewed: vital signs, nurses notes. Data interpreted: Pulse oximetry: on room air kb is 95 %. Interpretation: normal. Counseling: I had a detailed discussion with the patient and/or guardian regarding: the historical points, exam findings, and any diagnostic results supporting the discharge/admit diagnosis, lab results, the need for further work-up and treatment in the hospital. 04/02 00:00 Order name: Basic Metabolic Panel; Complete Time: 01:07 kb 04/02 00:00 Order name: CBC with Diff; Complete Time: 01:31 kb 04/02 00:00 Order name: Type And Screen kb 04/02 01:10 Order name: Packed RBC Leukored -1 EDMS 04/02 01:19 Order name: Manual Differential; Complete Time: 01:31 EDMS 04/02 01:38 Order name: Comprehensive Metabolic Panel EDMS 04/02 01:38 Order name: Comprehensive Metabolic Panel EDMS 04/02 01:38 Order name: Protime (+INR) EDMS 04/02 01:38 Order name: Protime (+INR) EDMS 04/02 01:38 Order name: PTT, Activated Partial Thromb EDMS 04/02 01:38 Order name: PTT, Activated Partial Thromb EDMS 04/02 01:39 Order name: CBC with Automated Diff EDMS 04/02 01:39 Order name: CBC with Automated Diff EDMS 04/02 01:40 Order name: Vitamin B12 Level EDIL 04/02 01:40 Order name: Vitamin B12 Level EDIL 04/02 01:40 Order name: Ferritin EDIL 04/02 01:40 Order name: Ferritin EDIL 04/02 01:40 Order name: Folic Acid, (Folate) EDIL 04/02 01:40 Order name: Folic Acid, (Folate) EDIL 04/02 01:40 Order name: Iron EDIL 04/02 01:40 Order name: Lactic Dehydrogenase EDIL 04/02 01:40 Order name: Lactic Dehydrogenase EDIL 04/02 01:40 Order name: Retic Count EDIL 04/02 01:40 Order name: Retic Count EDIL 04/02 01:40 Order name: Transferrin Sat/Iron Binding EDIL 04/02 01:40 Order name: Transferrin Sat/Iron Binding EDIL 04/02 00:00 Order name: IV Saline Lock; Complete Time: 00:31 kb 04/02 00:00 Order name: Labs collected and sent; Complete Time: 00:31 kb 04/02 00:00 Order name: NPO; Complete Time: 00:03 kb 04/02 00:00 Order name: Orthostatics; Complete Time: 00:41 kb 04/02 01:38 Order name: CONS Pharmacy Consult EDIL 04/02 01:39 Order name: Heart Healthy EDIL Administered Medications: 00:31 Drug: NS 0.9% 1000 ml Route: IV; Rate: 1000 ml; Site: left antecubital; jd3 02:55 Follow up: Response: No adverse reaction; IV Status: Completed infusion jd3 Disposition: 04/03 01:04 Co-signature as Attending Physician, Neri Brewster MD. rn Disposition: 04/02/18 00:57 Hospitalization ordered by Donald Cedillo for Observation. Preliminary diagnosis are Syncope and collapse, Anemia, unspecified, Abnormal uterine and vaginal bleeding, unspecified. - Bed requested for Telemetry/MedSurg (observation). - Status is Observation. jd3 - Condition is Fair. - Problem is an ongoing problem. - Symptoms are unchanged. UTI on Admission? No Signatures: Dispatcher [employer] EDIL Fadia Treadwell, JARVIS STRONG-Stella Teixeira, RN Neri Smith MD MD rn Davies, Jonathon, RN RN jd3 Ranjana Stevens cc3 Corrections: (The following items were deleted from the chart) 04/02 01:19 00:49 CBC Smear Scan ordered. EDIL EDMS 01:41 01:40 Iron ordered. EDIL EDMS 01:47 00:57 Hospitalization Ordered by Donald Cedillo MD for Observation. Preliminary kl diagnosis is Syncope and collapse; Anemia, unspecified; Abnormal uterine and vaginal bleeding, unspecified. Bed requested for Telemetry/MedSurg (observation). Status is Observation. Condition is Fair. Problem is an ongoing problem. Symptoms are unchanged. UTI on Admission? No. kb 02:59 01:47 04/02/2018 00:57 Hospitalization Ordered by Donald Cedillo MD for Observation. jd3 Preliminary diagnosis is Syncope and collapse; Anemia, unspecified; Abnormal uterine and vaginal bleeding, unspecified. Bed requested for Telemetry/MedSurg (observation). Status is Observation. Condition is Fair. Problem is an ongoing problem. Symptoms are unchanged. UTI on Admission? No. kl
[2018-04-02 01:24] LABS: Blood Morphology Comment NOTED (NOT SEEN); Platelet Estimate INCR
[2018-04-02 01:25] LABS: Anisocytosis 1+; Hypochromasia 2+; Ovalocytes 2+; Polychromasia 1+
[2018-04-02] MEDS ORDERED: NA CHLORIDE 0.9% 250 ML ONE ×2 (01:29→12:39)
[2018-04-02] MEDS ORDERED: ACETAMINOPHEN 500 MG TAB PO PRN (01:36)
[2018-04-02] MEDS ORDERED: MORPHINE 2 MG/ML SYR IV PRN (01:36)
[2018-04-02] MEDS ORDERED: ONDANSETRON 4 MG/2 ML VIAL IV PRN (01:36)
[2018-04-02] MEDS: NA CHLORIDE 0.9% 1,000 ML IV SCH ×2 (04:27→12:00)
--- NOTE | 2018-04-02 08:40 | P.HP ---
Certification for Inpatient Patient admitted to: Observation With expected LOS: <2 Midnights Patient will require the following post-hospital care: None Practitioner: I am a practitioner with admitting privileges, knowledge of patient current condition, hospital course, and medical plan of care. Services: Services provided to patient in accordance with Admission requirements found in Title 42 Section 412.3 of the Code of Federal Regulations Patient History Date of Service: 04/02/18 Reason for admission: Menorrhagia History of Present Illness: Patient is a 42-year-old female came to the hospital with severe anemia. Patient passed out but was with someone in there were able to hold her. She has fallen before and found have severe anemia. She had a workup done which revealed uterine fibroids and there was recommendation for a hysterectomy. However, since patient did not have insurance she could not follow-up. Have advised her to go to the [place] [facility] to see if she can get further treatment. Will have protective services social worker talk to patient. Will transfuse her 3 units packed red blood cells. She states even though she has been on Depo- provera shot and other oral hormones but she continues to bleed. She will need further workup. Allergies No Known Allergies Allergy (Verified 04/02/18 02:55) Home Medications: Iron,Carbonyl/Vit C/Vit B12/FA [Iron 100 Plus Tablet] 3 each PO DAILY 04/02/18 - Past Medical/Surgical History Has patient received pneumonia vaccine in the past: Yes Diabetic: No -: Menorrhagia Past Surgical History: Patient denies surgical history - Family History Mother Medical History: Cancer - Social History Smoking Status: Never smoker Alcohol use: No CD- Drugs: No Caffeine use: Yes Place of Residence: Home Review of Systems 10-point ROS is otherwise unremarkable Physical Examination - Vital Signs Temperature: 98.5 F Blood Pressure: 141/73 Pulse: 105 Respirations: 18 Pulse Ox (%): 99 - Physical Exam General: Alert, In no apparent distress, Oriented x3 HEENT: Atraumatic, PERRLA, Mucous membr. moist/pink, EOMI, Sclerae nonicteric Neck: Supple, 2+ carotid pulse no bruit, No LAD, Without JVD or thyroid abnormality Respiratory: Clear to auscultation bilaterally, Normal air movement Cardiovascular: Regular rate/rhythm, Normal S1 S2, No murmurs Gastrointestinal: Normal bowel sounds, Soft and benign, Non-distended, No tenderness Musculoskeletal: No clubbing, No swelling, No tenderness Integumentary: No rashes Neurological: Normal gait, Normal speech, Normal strength at 5/5 x4 extr, Normal tone, Sensation intact, Cranial nerves 3-12 intact, Normal affect Lymphatics: No axilla or inguinal lymphadenopathy - Studies Laboratory Data (last 24 hrs) 04/02/18 00:25: WBC 11.1 H, Hgb 6.6 L*, Hct 22.9 L, Plt Count 430 H 04/02/18 00:25: Sodium 143, Potassium 3.5, BUN 13, Creatinine 1.40 H, Glucose 150 H Assessment & Plan - Problems (Diagnosis) (1) Menorrhagia Current Visit: Yes Status: Acute (2) Acute blood loss anemia Current Visit: Yes Status: Acute - Plan Plan: 1. Transfuse 3 units of packed red blood cells 2. Serial H&Hs 3. Outpatient follow with [facility] 4. GI and DVT prophylaxis Discharge Plan: Home Plan to discharge in: 24 Hours - Advance Directives Does patient have a Living Will: No Does patient have a Durable POA for Healthcare: No - Code Status/Comfort Care Code Status Assessed: Yes Code Status: Full Code Critical Care: No Time Spent Managing PTS Care (In Minutes): 45
[2018-04-02 09:30] LABS: Hematocrit 24.3 % (36.0-45.0)
[2018-04-02 10:21] LABS: Ferritin 2.1 ng/mL (8-388); Folic Acid, (Folate) 11.8 ng/mL (3.1-17.5)
[2018-04-02 12:24] LABS: RBC Red Blood Cell Count 3.39 M/uL (3.86-4.86)
[2018-04-02 17:46] LABS: Hematocrit 27.8 % (36.0-45.0)
[2018-04-03] MEDS ORDERED: IRON CARBONYL PO SCH (09:00)
[2018-04-03] MEDS ORDERED: [UNRECOGNIZED DRUG - OTHER] PO SCH (09:00)
[2018-04-03] MEDS ORDERED: VIT C PO SCH (09:00)
[2018-04-03] MEDS ORDERED: VIT B12 PO SCH (09:00)
== END 2018-04-02 19:15 | disposition home or self-care (01) ==
LOC: ER 23:46 → ERHOLD 04-02 01:36 → 2ND 04-02 02:39
PROVIDERS: ADMIT Hospitalist; ATTEND Hospitalist
PROC: 30233N1 Transfusion of Nonautologous Red Blood Cells into Peripheral Vein, Percutaneous Approach (ICD-10-PCS; principal; 2018-04-02)
DX: N92.0 Excessive and frequent menstruation with regular cycle (principal); D62 Acute posthemorrhagic anemia
CPT/HCPCS: 36415; 36430; 80048; 82607; 82728; 82746; 83540; 83615; 84466; 85014; 85018; 85025; 85044; 86850; 86900; 86901; 96360; 96361; 99285; G0378; J7030; P9016

== ENCOUNTER 2020-07-11 23:07 | Inpatient (IN) | payer OTHER, SELFPAY ==
--- OUTSIDE RECORDS SUMMARY | 2020-07-11 23:11 | XMS REPORT | Continuity of Care Document ---
:1975 Author Organization [facility] t Address [address] [place] [address] Care Team Providers Name Role Phone Miles STRONG Attending Clinician Doctor Unassigned, Name Attending Clinician Unavailable Problems This patient has no known problems. Allergies, Adverse Reactions, Alerts This patient has no known allergies or adverse reactions. Medications This patient has no known medications. Procedures This patient has no known procedures. Encounters Start End Encounter Admission Attending Care Care Encounter Source Date/Time Date/Time Type Type Clinicians Facility Department ID 2019-10-21 2019-10-21 Telephone Arcelia Aquino PEGGYSITA [id number] 00:00:00 00:00:00 [facility] [id number] [facility] [id number] PRIMARY [id number] CARE - [address] 2019-10-16 2019-10-16 Orders Doctor MELÉNDEZ [id number] 00:00:00 00:00:00 Only UnassignedTYREE [id number] [place] [facility] [id number] Results This patient has no known results.
[2020-07-12 00:12] LABS: Absolute Lymphocytes (CBC) 3.1 K/uL (0.7-4.9); Basophils % 0.9 % (0-1.3); Lymphocytes % 26.6 % (15.3-44.8); MPV 9.4 fL (7.6-11.3); RBC Red Blood Cell Count 4.76 M/uL (3.86-4.86)
[2020-07-12 00:21] LABS: Potassium 3.5 mmol/L (3.5-5.1)
--- NOTE | 2020-07-12 01:02 | EDPHYS ---
Physician Documentation [facility] Name: Lisette Daniel Age: 45 yrs Sex: Female : 1975 Arrival Date: 07/11/2020 Time: 23:11 Bed 7 Private MD: ED Physician Alvino Roy HPI: 07/12 00:45 This 45 yrs old Black Female presents to ER via Ambulatory with complaints of Weakness, kb Knee Pain, Vaginal Bleeding. 00:45 The patient presents with generalized weakness. Onset: The symptoms/episode kb began/occurred 1 week(s) ago. Context: occurred at home, just prior to the episode the patient experienced no apparent symptoms. Modifying factors: The symptoms are alleviated by nothing, the symptoms are aggravated by nothing. Associated signs and symptoms: Pertinent positives: vaginal bleeding. Severity of symptoms: At their worst the symptoms were mild in the emergency department the symptoms are unchanged. Patient's baseline: Neuro: alert and fully oriented, Motor: no deficits, Ambulation: walks without assistance, Speech: normal. The patient has experienced similar episodes in the past, a few times. The patient has not recently seen a physician. Pt reports weakness and right knee "going out" over the last week. States she had some vaginal bleeding today. states she is worried about anemia because she has had it before. CARD SCRAPER: 07/11 23:29 LMP N/A - Hysterectomy bb Historical: - Allergies: 23:29 No Known Allergies; bb - Home Meds: 23:29 None [Active]; bb - PMHx: 23:29 fibroids; bb - PSHx: 23:29 ; Cholecystectomy; bb - Immunization history:: Adult Immunizations up to date. - Social history:: Smoking status: Patient denies any tobacco usage or history of. Patient/guardian denies using alcohol, street drugs. ROS: 07/12 00:45 Constitutional: Negative for fever, chills, and weight loss, Cardiovascular: Negative kb for chest pain, palpitations, and edema, Respiratory: Negative for shortness of breath, cough, wheezing, and pleuritic chest pain, Abdomen/GI: Negative for abdominal pain, nausea, vomiting, diarrhea, and constipation, MS/Extremity: Negative for injury and deformity, Skin: Negative for injury, rash, and discoloration. : Positive for vaginal bleeding. MS/extremity: Positive for pain, of the right knee. Neuro: Positive for weakness. Exam: 00:44 Constitutional: This is a well developed, well nourished patient who is awake, alert, kb and in no acute distress. Head/Face: Normocephalic, atraumatic. Chest/axilla: Normal chest wall appearance and motion. Cardiovascular: Regular rate and rhythm with a normal S1 and S2. No gallops, murmurs, or rubs. No pulse deficits. Respiratory: Respirations even and unlabored. No increased work of breathing, no retractions or nasal flaring. Abdomen/GI: Soft, non-tender. No distention Skin: Warm, dry with normal turgor. Normal color. Neuro: Awake and alert, GCS 15, oriented to person, place, time, and situation. Moves all extremities. Normal gait. 00:44 Musculoskeletal/extremity: Extremities: grossly normal except: noted in the lateral right knee: tenderness, ROM: intact in all extremities, Circulation is intact in all extremities. Sensation intact. Weight bearing: able to fully bear weight. 00:58 : Pelvic Exam: External exam: is normal, Speculum exam: no bleeding is noted. kb Vital Signs: 07/11 23:27 BP 189 / 107; Pulse 114; Resp 22 S; Temp 99.2(O); Pulse Ox 97% on R/A; Weight 138.35 kg bb (R); Height 5 ft. 1 in. (154.94 cm) (R); Pain 2/10; 23:30 BP 201 / 91; Pulse 117; Resp 20; Pulse Ox 96% ; sf 07/12 00:36 BP 182 / 101 Supine; Pulse 108; oe 00:38 BP 186 / 104 Sitting; Pulse 113; oe 00:40 BP 193 / 117 Standing; Pulse 117; oe 01:00 BP 172 / 101; Pulse 115; Resp 20; Pulse Ox 94% ; sf 01:30 BP 172 / 101; Pulse 111; Resp 20; Pulse Ox 99% ; sf 02:30 BP 185 / 99; Pulse 109; Resp 18; Pulse Ox 94% ; sf 03:15 BP 191 / 108; Pulse 105; Resp 18; Pulse Ox 96% on R/A; sf 04:00 BP 169 / 98; Pulse 107; Resp 18; Pulse Ox 94% ; sf 07/11 23:27 Body Mass Index 57.63 (138.35 kg, 154.94 cm) bb MDM: 07/11 23:15 Patient medically screened. kb 07/12 00:43 Data reviewed: vital signs, nurses notes. Data interpreted: Pulse oximetry: on room air kb is 96 %. Interpretation: normal. 00:59 Special discussion: I have referred the patient to see his PCP for further evaluation kb of high blood pressure. ED course: Discussed hypertension with pt. Pt states she was diagnosed with hypertension a long time ago, but doesn't take anything for it. States she used to have headaches, but that became a normal thing for her because her pressure was always high. Denies headache now, denies chest pain, dizziness. Educated to keep bp log and follow up with pcp. 01:23 Transition of care: After a detail discussion of the patient's case, care is kb transferred to Alvino Roy MD. 03:23 Counseling: I had a detailed discussion with the patient and/or guardian regarding: the 7 historical points, exam findings, and any diagnostic results supporting the discharge/admit diagnosis, the presence of at least one elevated blood pressure reading (>120/80) during this emergency department visit, lab results, radiology results, the need for further work-up and treatment in the hospital. Response to treatment: the patient's symptoms have mildly improved after treatment. 07/11 23:23 Order name: CBC with Diff; Complete Time: 00:22 kb 07/11 23:23 Order name: Basic Metabolic Panel; Complete Time: 02:48 kb 07/12 00:08 Order name: Urine Dipstick--Ancillary (enter results); Complete Time: 13:01 mw2 07/12 00:51 Order name: Urine Microscopic Only kb 07/12 00:51 Order name: Urine Microscopic Only; Complete Time: 02:48 EDMS 07/12 01:15 Order name: LFT's kb 07/12 01:15 Order name: Magnesium kb 07/12 01:15 Order name: NT PRO-BNP kb 07/12 01:15 Order name: PT-INR; Complete Time: 02:48 kb 07/12 01:15 Order name: Troponin (emerg Dept Use Only) kb 07/12 01:15 Order name: D-Dimer; Complete Time: 02:48 kb 07/11 23:23 Order name: CT Stone Protocol kb 07/12 01:15 Order name: XRAY Chest (1 view); Complete Time: 13:01 kb 07/12 01:35 Order name: Liver (Hepatic) Function; Complete Time: 02:48 EDMS 07/12 01:35 Order name: Troponin (Emerg Dept Use Only); Complete Time: 02:48 EDMS 07/12 01:35 Order name: NT PRO-BNP; Complete Time: 02:48 EDMS 07/12 01:35 Order name: Magnesium; Complete Time: 02:48 EDMS 07/12 01:35 Order name: Thyroid Stimulating Hormone; Complete Time: 02:48 EDMS 07/12 02:07 Order name: T4 Free; Complete Time: 02:48 EDMS 07/12 02:20 Order name: Urine Culture EDMS 07/12 02:51 Order name: SARS-COV-2 RT PCR; Complete Time: 02:54 EDMS 07/11 23:23 Order name: Urine Dipstick-Ancillary (obtain specimen); Complete Time: 23:51 kb 07/11 23:23 Order name: IV Start; Complete Time: 23:35 kb 07/12 00:23 Order name: Orthostatics; Complete Time: 00:47 kb 07/12 01:15 Order name: EKG; Complete Time: 01:16 kb 07/12 01:15 Order name: Cardiac monitoring; Complete Time: 01:40 kb 07/12 01:15 Order name: EKG - Nurse/Tech; Complete Time: 02:05 kb 07/12 01:15 Order name: Labs collected and sent; Complete Time: 01:40 kb 07/12 01:15 Order name: O2 Per Protocol; Complete Time: 01:40 kb 07/12 01:15 Order name: O2 Sat Monitoring; Complete Time: 01:40 kb 07/12 04:07 Order name: CONS Physician Consult EDMS Administered Medications: 01:00 Drug: NS 0.9% 1000 ml Route: IV; Rate: 1000 ml; Site: right antecubital; sf 03:35 Follow up: IV Status: Completed infusion; IV Intake: 1000ml sf 01:45 Drug: Rocephin (cefTRIAXone) 1 grams Route: IV; Rate: calculated rate; Site: right sf antecubital; 01:55 Follow up: IV Status: Completed infusion; IV Intake: 10ml sf 03:45 Follow up: Response: No adverse reaction sf 03:37 Drug: Nitroglycerin Ointment 2 % 0.5 inches Route: Transdermal; Site: anterior chest sf wall; 04:31 Follow up: Response: No adverse reaction sf 03:38 Drug: Lasix (furosemide) 20 mg Route: IVP; Infused Over: 2 mins; Site: right sf antecubital; 04:31 Follow up: Response: No adverse reaction sf Disposition: 06:21 Co-signature as Attending Physician, Alvino Roy MD. mh7 Disposition: 07/12/20 03:25 Hospitalization ordered by Donald Cedillo for Inpatient Admission. Preliminary diagnosis are Uncontrolled Hypertension, Congestive Heart Failure. - Bed requested for Telemetry/MedSurg (Inpatient). - Status is Inpatient Admission. bb - Condition is Stable. - Problem is new. - Symptoms have improved. Signatures: Dispatcher [employer] EDMS Fadia Treadwell FNP-C FNP-Ckb Webb, Martha, RN RN Sherrell Nguyen RN RN Alvino Telles MD MD [facility] Ben Richmond RN RN sf Corrections: (The following items were deleted from the chart) 01:14 01:01 07/12/2020 01:01 Discharged to Home. Impression: Weakness; Essential (primary) kb hypertension; Urinary tract infection, site not specified. Condition is Stable. Discharge Instructions: Urinary Tract Infection, Adult, [id number], Hypertension, [id number]. Prescriptions for Macrobid 100 mg Oral Capsule - take 1 capsule by ORAL route every 12 hours for 7 days; 14 capsule. and Forms are Medication Reconciliation Form, Thank You Letter, Antibiotic Education, Prescription Opioid Use. Follow up: Emergency Department; When: As needed; Reason: Worsening of condition. Follow up: Private Physician; When: 2 - 3 days; Reason: Recheck today's complaints, Continuance of care, Re-evaluation by your physician. kb :23 00:43 Counseling: I had a detailed discussion with the patient and/or guardian alisia regarding: the historical points, exam findings, and any diagnostic results supporting the discharge/admit diagnosis, lab results, radiology results, the need for outpatient follow up, a family practitioner, to return to the emergency department if symptoms worsen or persist or if there are any questions or concerns that arise at home, kb 01:34 01:15 Liver (Hepatic) Function ordered. EDAZ EDMS :34 01:15 Magnesium ordered. EDAZ EDMS 34 01:16 NT PRO-BNP ordered. [facility] EDMS 34 01:16 Troponin (Emerg Dept Use Only) ordered. EDAZ EDMS :34 01:16 THYROID STIMULAT HORMONE+C.LAB.BRZ ordered. EDAZ EDMS 03:13 02:55 Urine Culture+BA.LAB.BRZ ordered. EDAZ EDMS 04:13 03:25 Hospitalization Ordered by Donald Cedillo MD for Inpatient Admission. Preliminary mw diagnosis is Uncontrolled Hypertension; Congestive Heart Failure. Bed requested for Telemetry/MedSurg (Inpatient). Status is Inpatient Admission. Condition is Stable. Problem is new. Symptoms have improved. mh7 04:47 04:13 07/12/2020 03:25 Hospitalization Ordered by Donald Cedillo MD for Inpatient bb Admission. Preliminary diagnosis is Uncontrolled Hypertension; Congestive Heart Failure. Bed requested for Telemetry/MedSurg (Inpatient). Status is Inpatient Admission. Condition is Stable. Problem is new. Symptoms have improved. mw
--- NOTE | 2020-07-12 01:02 | ER ---
Nurse's Notes [facility] Name: Lisette Daniel Age: 45 yrs Sex: Female : 1975 Arrival Date: 07/11/2020 Time: 23:11 Bed 7 Private MD: Diagnosis: Uncontrolled Hypertension;Congestive Heart Failure Presentation: 07/11 23:27 Chief complaint: Patient states: she had a hysterectomy 12 - 18 months ago and has not bb had any vaginal bleeding until today she also has had intermittent weakness for the last month and a sore right knee. Coronavirus screen: At this time, the client does not indicate any symptoms associated with coronavirus-19. Ebola Screen: No symptoms or risks identified at this time. Initial Sepsis Screen: Does the patient meet any 2 criteria? RR > 20 per min. HR > 90 bpm. Yes Does the patient have a suspected source of infection? No. Patient's initial sepsis screen is negative. Risk Assessment: Do you want to hurt yourself or someone else? Patient reports no desire to harm self or others. Onset of symptoms was July 04, 2020. 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 - Social history:: Smoking status: Patient denies any tobacco usage or history of. Patient/guardian denies using alcohol, street drugs. Screenin:20 Abuse screen: Denies threats or abuse. Denies injuries from another. Nutritional sf screening: No deficits noted. Tuberculosis screening: No symptoms or risk factors identified. Never had TB. Possible symptoms: None Risk factors: None. Fall Risk No fall in past 12 months (0 pts). No secondary diagnosis (0 pts). IV access (20 points). Ambulatory Aid- None/Bed Rest/Nurse Assist (0 pts). Gait- Impaired (20 pts.). Mental Status- Overestimates/Forgets Limitations (15 pts.). Total Joseph Fall Scale indicates Low Risk Score (25-44 pts). Fall prevention measures have been instituted. Side Rails Up X 2 Placed close to Nursing Station. Assessment: 23:20 General: Appears in no apparent distress. comfortable, Behavior is calm, cooperative, sf appropriate for age. Pain: Complains of pain in right knee. Neuro: No deficits noted. Level of Consciousness is awake, alert, obeys commands, Oriented to person, place, time, situation. Cardiovascular: No deficits noted. Patient's skin is warm and dry. Respiratory: No deficits noted. Airway is patent Respiratory effort is even, unlabored, Respiratory pattern is regular, symmetrical. GI: No signs and/or symptoms were reported involving the gastrointestinal system. : Reports urinary frequency, vaginal bleeding that is. Musculoskeletal: Reports pain in right knee. 07/12 01:47 Reassessment: Patient appears in no apparent distress at this time. No changes from sf previously documented assessment. Patient and/or family updated on plan of care and expected duration. Pain level reassessed. Patient is alert, oriented x 3, equal unlabored respirations, skin warm/dry/pink. 01:51 Reassessment: Lab called to report D-dimer 667, Dr. Roy notified. sf 04:30 Reassessment: Patient appears in no apparent distress at this time. No changes from sf previously documented assessment. Patient and/or family updated on plan of care and expected duration. Pain level reassessed. Patient is alert, oriented x 3, equal unlabored respirations, skin warm/dry/pink. Vital Signs: 07/11 23:27 BP 189 / 107; Pulse 114; Resp 22 S; Temp 99.2(O); Pulse Ox 97% on R/A; Weight 138.35 kg bb (R); Height 5 ft. 1 in. (154.94 cm) (R); Pain 2/10; 23:30 BP 201 / 91; Pulse 117; Resp 20; Pulse Ox 96% ; sf 07/12 00:36 BP 182 / 101 Supine; Pulse 108; oe 00:38 BP 186 / 104 Sitting; Pulse 113; oe 00:40 BP 193 / 117 Standing; Pulse 117; oe 01:00 BP 172 / 101; Pulse 115; Resp 20; Pulse Ox 94% ; sf 01:30 BP 172 / 101; Pulse 111; Resp 20; Pulse Ox 99% ; sf 02:30 BP 185 / 99; Pulse 109; Resp 18; Pulse Ox 94% ; sf 03:15 BP 191 / 108; Pulse 105; Resp 18; Pulse Ox 96% on R/A; sf 04:00 BP 169 / 98; Pulse 107; Resp 18; Pulse Ox 94% ; sf 07/11 23:27 Body Mass Index 57.63 (138.35 kg, 154.94 cm) bb ED Course: 07/11 23:11 Patient arrived in ED. cf2 23:15 Fadia Treadwell [facility]C [facility]. kb 23:15 Alvino Roy MD is Attending Physician. kb 23:17 Ben Richmond, SUSSY is Primary Nurse. sf 23:20 Patient has correct armband on for positive identification. Bed in low position. Call sf light in reach. Side rails up X2. Pulse ox on. NIBP on. Door closed. Noise minimized. Visitors limited. Lights dimmed. Verbal reassurance given. 23:29 Triage completed. bb 23:29 Arm band placed on Patient placed in an exam room, on a stretcher, on pulse oximetry. bb 23:30 Initial lab(s) drawn, by [place], sent to lab. Inserted saline lock: 20 gauge in right sf antecubital area, using aseptic technique. Blood collected. 23:50 Urine collected:. sf 07/12 00:07 CT Stone Protocol Sent. sf 00:24 CT Stone Protocol In Process Unspecified. EDMS 00:55 Urine Microscopic Only Sent. sf 01:39 Troponin (Emerg Dept Use Only) Sent. sf 01:39 Liver (Hepatic) Function Sent. sf 01:39 Magnesium Sent. sf 01:39 NT PRO-BNP Sent. sf 01:40 Thyroid Stimulating Hormone Sent. sf 01:40 XRAY Chest (1 view) Sent. sf 01:40 NT PRO-BNP Sent. sf 01:40 Troponin (emerg Dept Use Only) Sent. sf 01:40 Magnesium Sent. sf 01:40 LFT's Sent. sf 01:46 XRAY Chest (1 view) In Process Unspecified. EDMS 02:02 EKG done, by ED staff, reviewed by Alvino Roy MD. sf 03:24 Donald Cedillo MD is Hospitalizing Provider. [facility] 04:28 No provider procedures requiring assistance completed. Patient admitted, IV remains in sf place. 04:30 IV is patent, is intact, with fluids infusing freely, with good blood return. sf Administered Medications: 01:00 Drug: NS 0.9% 1000 ml Route: IV; Rate: 1000 ml; Site: right antecubital; sf 03:35 Follow up: IV Status: Completed infusion; IV Intake: 1000ml sf 01:45 Drug: Rocephin (cefTRIAXone) 1 grams Route: IV; Rate: calculated rate; Site: right sf antecubital; 01:55 Follow up: IV Status: Completed infusion; IV Intake: 10ml sf 03:45 Follow up: Response: No adverse reaction sf 03:37 Drug: Nitroglycerin Ointment 2 % 0.5 inches Route: Transdermal; Site: anterior chest sf wall; 04:31 Follow up: Response: No adverse reaction sf 03:38 Drug: Lasix (furosemide) 20 mg Route: IVP; Infused Over: 2 mins; Site: right sf antecubital; 04:31 Follow up: Response: No adverse reaction sf Intake: 01:55 IV: 10ml; Total: 10ml. sf 03:35 IV: 1000ml; Total: 1010ml. sf Outcome: 01:01 Discharge ordered by . kb 03:25 Decision to Hospitalize by Provider. [facility] 04:40 Admitted to Tele accompanied by tech, via stretcher, room 225, Report called to alessia Velazquez RN 04:40 Condition: stable 04:40 Instructed on the need for admit. 04:47 Patient left the ED. bb Signatures: Dispatcher [employer] EDMS Fadia Treadwell, TAE-Marsha ALMONTEP-Sherrell Orona RN RN bb Pierce Mora Celesta cf2 Alvino Roy MD MD Ben Rose RN RN sf
[2020-07-12] MEDS ORDERED: NA CHLORIDE 0.9% 1,000 ML ONE (01:15)
[2020-07-12 01:41] LABS: Protime INR 1.04
[2020-07-12 01:53] LABS: Urine Blood 3+ (Negative); Urine Glucose NEGATIVE (Negative); Urine Protein 2+ (NEG); Urine Specific Gravity 1.025 (1.005-1.030)
[2020-07-12] MEDS ORDERED: CEFTRIAXONE/SWI 1gm 1 GM/10 ML SYR ONE (02:00)
[2020-07-12 02:06] LABS: Albumin 3.6 g/dL (3.4-5.0); Bilirubin Direct 0.1 mg/dL (0-0.2); Bilirubin Total 0.6 mg/dL (0.2-1.0); Protein, Total 8.3 g/dL (6.4-8.2); Troponin (Emerg Dept Use Only) 0.03 ng/mL (0.0-0.045)
[2020-07-12 02:07] LABS: Thyroid Stimulating Hormone 3.98 uIU/mL (0.360-3.740)
[2020-07-12 02:19] LABS: Calcium Oxalate Crystals- Ur FEW (NONE SEEN); Urine Bacteria 20-50 /HPF (<20); Urine RBC 20-50 /HPF (NONE SEEN)
[2020-07-12] MEDS ORDERED: NITROGLYCERIN 1 GM PKT TD ONE (03:53)
[2020-07-12] MEDS ORDERED: FUROSEMIDE 20 MG/ 2ML VIAL ONE (03:53)
--- NOTE | 2020-07-12 04:27 | P.HP ---
Certification for Inpatient Patient admitted to: Observation With expected LOS: <2 Midnights Patient will require the following post-hospital care: None Practitioner: I am a practitioner with admitting privileges, knowledge of patient current condition, hospital course, and medical plan of care. Services: Services provided to patient in accordance with Admission requirements found in Title 42 Section 412.3 of the Code of Federal Regulations <Ronnie Mcdonnell - Last Filed: 07/12/20 04:21> Patient History Date of Service: 07/12/20 Primary Care Provider: none Reason for admission: HTN urgency History of Present Illness: Ms. Daniel is a 45 yo obese F with uterine fibroids s/p hysterectomy in August 2018, HTN (not on medications) and DEEPAK (not on CPAP) here today with worsening SOB beginning 1 week ago. She initially attributed the SOB to starting to play softball again. She reports RAMEY, PND, orthopnea, cough, palpitations, fatigue. Denies wheezing. She sleeps sitting up on the couch. She reports hurting her leg recently, and has right leg pain, swelling, numbness, discomfort. Initial BP to 191/108, 115bpm. Troponins negative. BNP 327. Cr 1.6. GFR 42. Glu 120. D dimer 667. She reports 1 episode of vaginal bleeding when wiping yesterday. She reports urgency, nocturia. She denies fever, dysuria, frequency, hematuria, back and flank pain. WBC 11.6. UA - 3+ blood, 20-50 RBCs, 5-10 WBCs, 20-50 bacteria, 3+ protein. CT shows no acute abnormality identified in the abdomen or pelvis, no hydronephrosis or urolithiasis, diffuse hepatic steatosis, hepatomegaly, prior cholecystectomy and hysterectomy. - Past Medical/Surgical History Diabetic: No -: HTN -: DEEPAK -: hysterectomy for uterine fibroids -: cholecystectomy - Family History Mother -: Diabetes, Cancer - Social History Smoking Status: Never smoker Alcohol use: No CD- Drugs: No Caffeine use: Yes Place of Residence: Home <Ronnie Mcdonnell - Last Filed: 07/12/20 04:21> Date of Service: 07/12/20 <sima tripathi - Last Filed: 07/12/20 11:38> Allergies No Known Allergies Allergy (Verified 07/12/20 04:54) Home Medications: Multivitamin [Multivitamins] 1 tab PO DAILY 07/12/20 Review of Systems General: Malaise, As per HPI Eyes: Unremarkable ENT: Unremarkable Respiratory: Cough, Shortness of Breath, SOB with Excertion, As per HPI Cardiovascular: Palpitations, Orthopnea, Paroxysmal Noc. Dyspnea, As per HPI Gastrointestinal: Unremarkable Genitourinary: Urgency, Hematuria, As per HPI Musculoskeletal: Leg Pain, As per HPI Integumentary: Unremarkable Neurological: Unremarkable Lymphatics: Unremarkable <Ronnie Mcdonnell - Last Filed: 07/12/20 04:21> Physical Examination - Vital Signs Temperature: 99.2 F Blood Pressure: 193/117 Pulse: 114 Respirations: 22 Pulse Ox (%): 97 - Physical Exam General: Alert, In no apparent distress, Oriented x3, Cooperative, Obese HEENT: Atraumatic, Normocephalic, PERRLA, Mucous membr. moist/pink, EOMI, Sclerae nonicteric Neck: Supple, 2+ carotid pulse no bruit, JVD not distended, No Thyromegaly, No LAD Respiratory: Clear to auscultation bilaterally, Normal air movement Cardiovascular: Normal pulses, Regular rate/rhythm, Normal S1 S2, No gallops, No rubs, No murmurs Capillary refill: <2 Seconds Gastrointestinal: Normal bowel sounds, Soft and benign, Non-distended, No ascites, No tenderness, No masses, No rebound, No guarding Musculoskeletal: No clubbing, No swelling, No contractures, No erythema, No tenderness, No warmth Integumentary: No rashes, No breakdown, No significant lesion, No tenderness/swelling, No erythema, No warmth, No cyanosis Neurological: Normal speech, Normal strength at 5/5 x4 extr, Normal tone, Sensation intact, Cranial nerves 3-12 intact, Normal affect Lymphatics: No axilla or inguinal lymphadenopathy - Studies Laboratory Data (last 24 hrs) 07/12/20 01:15: Magnesium Cancelled, Total Bilirubin Cancelled, AST Cancelled, ALT Cancelled, Alkaline Phosphatase Cancelled 07/12/20 00:00: PT 12.0, INR 1.04 07/11/20 23:30: Sodium 143, Potassium 3.5, BUN 16, Creatinine 1.60 H, Glucose 120 H, Magnesium 2.0, Total Bilirubin 0.6, AST 25, ALT 46, Alkaline Phosphatase 105 07/11/20 23:30: WBC 11.60 H, Hgb 13.2, Hct 42.0, Plt Count 316 <Ronnie Mcdonnell - Last Filed: 07/12/20 04:21> - Studies Laboratory Data (last 24 hrs) 07/12/20 01:15: Magnesium Cancelled, Total Bilirubin Cancelled, AST Cancelled, ALT Cancelled, Alkaline Phosphatase Cancelled 07/12/20 00:00: PT 12.0, INR 1.04 07/11/20 23:30: Sodium 143, Potassium 3.5, BUN 16, Creatinine 1.60 H, Glucose 120 H, Magnesium 2.0, Total Bilirubin 0.6, AST 25, ALT 46, Alkaline Phosphatase 105 07/11/20 23:30: WBC 11.60 H, Hgb 13.2, Hct 42.0, Plt Count 316 <sima tripathi - Last Filed: 07/12/20 11:38> Assessment and Plan - Problems (Diagnosis) (1) Hypertension Current Visit: Yes Status: Acute Qualifiers: Hypertension type: essential hypertension Qualified Code(s): I10 - Essential (primary) hypertension (2) DEEPAK (obstructive sleep apnea) Current Visit: Yes Status: Chronic (3) UTI (urinary tract infection) Current Visit: Yes Status: Acute Qualifiers: Urinary tract infection type: site unspecified Hematuria presence: with hematuria Qualified Code(s): N39.0 - Urinary tract infection, site not specified; R31.9 - Hematuria, unspecified - Plan -A1c and lipid panel pending, dietitian consulted -D dimer of 667 - V/Q scan pending, venous doppler ultrasound, DVT ppx -Ceftriaxone 1g IV daily for UTI, leukocyte esterase pending + nitrites negative and hematuria, await urine cultures -Cardiology consulted for uncontrolled HTN and possible CHF -hydralazine 10mg IV PRN and NTG patch for BP control Discharge Plan: Home Plan to discharge in: 24 Hours - Advance Directives Does patient have a Living Will: No Does patient have a Durable POA for Healthcare: No - Code Status/Comfort Care Code Status Assessed: Yes (full code) Critical Care: No Time Spent Managing Pts Care (In Minutes): 70 <Ronnie Mcdonnell - Last Filed: 07/12/20 04:21> Physician Review: Patient Assessed, Agree with Above Assessment and Plan Physician Review Additional Text: Shortness of breath Morbid obesity UTI Obstructive sleep apnea Chronic kidney disease stage 3. Plan: V/Q scan to rule out PE and echocardiogram to assess LV function ordered. IV Rocephin for UTI. Follow urine culture. Oxygen as needed. <sima tripathi - Last Filed: 07/12/20 11:38>
[2020-07-12] MEDS ORDERED: ACETAMINOPHEN 500 MG TAB PO PRN (04:40)
[2020-07-12] MEDS ORDERED: ONDANSETRON 4 MG/2 ML VIAL IV PRN (04:40)
[2020-07-12] MEDS: HYDRALAZINE HCL 20 MG/ML VIAL IV PRN ×2 (05:11→13:00)
[2020-07-12 05:34] VITALS: BMI 59.0
[2020-07-12 06:57] LABS: Phosphorus 3.8 mg/dL (2.5-4.9); Potassium 3.6 mmol/L (3.5-5.1)
--- NOTE | 2020-07-12 08:17 | RAD REPORT ---
EXAM DESCRIPTION: US - Extrem Venous W Compress Tonio - 07/12/2020 7:27 am CLINICAL HISTORY: Bilateral leg pain and swelling COMPARISON: None. TECHNIQUE: Real-time sonographic evaluation of the bilateral lower extremity common femoral, superfi cial femoral, popliteal and posterior tibial veins was performed. FINDINGS: Normal compressibility, flow augmentation, phasic flow and spontaneous flow are identified in the left and right lower extremity common femoral, superficial femoral, popliteal and posterior t ibial veins. No intraluminal filling defects seen. IMPRESSION: No DVT in either lower extremity.
--- NOTE | 2020-07-12 08:21 | RAD REPORT ---
EXAM DESCRIPTION: RAD - Chest Single View - 07/12/2020 1:48 am CLINICAL HISTORY: DYSPNEA COMPARISON: None TECHNIQUE: AP portable chest image was obtained 07/12/2020 1:48 am . FINDINGS: Lungs are clear. Portable technique and prominent overlying soft tissue accentuates lower lung field parenchymal pattern. Heart and vasculature are normal. No measurable pleural effusion and no pneumothorax. No acute bony abnormality seen. No acute aortic findings suspected. IMPRESSION: No acute cardiopulmonary process.
[2020-07-12] MEDS: HEPARIN 5000 UNIT/ML 1 ML VIAL SQ SCH ×2 (08:38→16:02)
[2020-07-12 08:43] VITALS: O2SAT 96
[2020-07-12] MEDS ORDERED: POTASSIUM CL SA 10 MEQ TAB PO ONE (09:00)
[2020-07-12] MEDS ORDERED: CEFTRIAXONE/SWI 1gm 1 GM/10 ML SYR IV SCH ×2 (09:00→21:00)
--- NOTE | 2020-07-12 11:43 | P.PN ---
Subjective Date of Service: 07/12/20 Primary Care Provider: none Chief Complaint: HTN urgency Patient states she feels better this morning. Her blood pressure has improved. She stated her shortness of breath has also improved. She denies chest pain. Physical Examination - Vital Signs Temperature: 97.7 F Blood Pressure: 163/75 Pulse: 116 Respirations: 20 Pulse Ox (%): 96 - Physical Exam General: Alert, In no apparent distress, Oriented x3, Obese HEENT: Mucous membr. moist/pink Neck: Supple, JVD not distended Respiratory: Clear to auscultation bilaterally, Diminished, Other (No rhonchi or crackles) Cardiovascular: No edema, Normal S1 S2, Other (Tachycardia, regular rhythm.) Gastrointestinal: Normal bowel sounds, Soft and benign, Non-distended, No tenderness Musculoskeletal: No clubbing, No tenderness Integumentary: No rashes, No erythema Neurological: Normal strength at 5/5 x4 extr, Cranial nerves 3-12 intact - Studies Laboratory Data (last 24 hrs) 07/12/20 01:15: Magnesium Cancelled, Total Bilirubin Cancelled, AST Cancelled, ALT Cancelled, Alkaline Phosphatase Cancelled 07/12/20 00:00: PT 12.0, INR 1.04 07/11/20 23:30: Sodium 143, Potassium 3.5, BUN 16, Creatinine 1.60 H, Glucose 1 20 H, Magnesium 2.0, Total Bilirubin 0.6, AST 25, ALT 46, Alkaline Phosphatase 105 07/11/20 23:30: WBC 11.60 H, Hgb 13.2, Hct 42.0, Plt Count 316 Assessment And Plan - Current Problems (Diagnosis) (1) Hypertensive urgency Current Visit: Yes Status: Acute (2) UTI (urinary tract infection) Current Visit: Yes Status: Acute Qualifiers: Urinary tract infection type: site unspecified Hematuria presence: with hematuria Qualified Code(s): N39.0 - Urinary tract infection, site not specified; R31.9 - Hematuria, unspecified (3) Morbid obesity Current Visit: Yes Status: Chronic (4) DEEPAK (obstructive sleep apnea) Current Visit: Yes Status: Chronic - Plan Continue IV Rocephin for UTI. Follow urine culture. V/Q scan has been requested to rule out pulmonary embolus. Awaiting echocardiogram. Patient reports noncompliance with CPAP. Her uncontrolled BP may be related to noncompliance with CPAP. Start antihypertensives-amlodipine. Hydralazine p.r.n. for BP spikes. Patient with a history of hysterectomy he reports vaginal bleed. This could be related to the UTI. She is not actively bleeding. She is informed she needs to follow up with her supervisor [employer] for further evaluation. Physician Review: Patient Assessed, Agree with Above Assessment and Plan Physician Review Additional Text: Shortness of breath Morbid obesity UTI Obstructive sleep apnea Chronic kidney disease stage 3. Plan: V/Q scan to rule out PE and echocardiogram to assess LV function ordered. IV Rocephin for UTI. Follow urine culture. Oxygen as needed.
[2020-07-12] MEDS ORDERED: AMLODIPINE 10 MG TAB PO SCH (11:44)
--- NOTE | 2020-07-12 11:47 | RAD REPORT ---
EXAM DESCRIPTION: CT - Stone Protocol - 07/12/2020 7:14 am CLINICAL HISTORY: PAIN. COMPARISON: CT of the abdomen and pelvis without contrast from January 21, 2018. TECHNIQUE: Serial axial CT images were obtained from above the diaphragm through the pubic symphysis without administration of intravenous or oral contrast. All CT scans are performed using dose optimization techniques as appropriate, including automated exp osure control and/or standardized protocols, where dose is adjusted for indication for exam and body habitus. FINDINGS: Slightly suboptimal exam due to streak artifact from patient body habitus. Thoracic: No significant abnormality. Hepatobiliary: Diffuse hepatic steatosis. Hepatomegaly, measuring 20.4 cm craniocaudal. No obvious co ncerning hepatic lesion identified in the absence of intravenous contrast. The gallbladder is surgica lly absent. No biliary ductal dilatation. Pancreas: Unremarkable. Spleen: Unremarkable. Gastrointestinal: No evidence of bowel obstruction or perienteric inflammation. The appendix is sara l. Adrenals: No abnormality identified in either adrenal gland. Renal: No obvious parenchymal abnormality in either kidney in the absence of intravenous contrast. No hydronephrosis or urolithiasis. Bladder/Reproductive: Unremarkable appearance of the urinary bladder by CT technique. Hysterectomy. Vascular/Lymphatics: No lymphadenopathy identified by CT size criteria. Abdominal aorta is normal in caliber. Small bilateral pelvic phleboliths, not to be confused with distal ureteral calculi. Musculoskeletal: No concerning osseous lesion identified. Mild bilateral sacroiliac osteoarthrosis. Fluid / peritoneum: No significant free fluid. No free intraperitoneal air identified. IMPRESSION: 1. No acute abnormality identified in the abdomen or pelvis by CT. 2. No hydronephrosis or urolithiasis identified. 3. Diffuse hepatic steatosis. Hepatomegaly. 4. Prior cholecystectomy and hysterectomy. Electronically signed by: Adri Selby MD 07/12/2020 12:38 AM CDT Due to temporary technical issues with the PACS/Fluency reporting system, reports are being signed by the in house radiologist without review as a courtesy to ensure prompt reporting. The interpreting r adiologist is fully responsible for the content of the report.
--- NOTE | 2020-07-12 11:58 | RAD REPORT ---
EXAM DESCRIPTION: NM - Vent Perfusion VQ Scan - 07/12/2020 11:38 am CLINICAL HISTORY: SOB COMPARISON: Portable chest August 12, 2020 TECHNIQUE: The patient was administered 19.8 mCi Xenon 133 gas with posterior projection inspiration , equilibrium, and washout views obtained. The patient was then administered 6.4 mCi Tc-99m MAA label ed RBCs followed by standard 8 view protocol. FINDINGS: There is good distribution of the Xenon with no ventilation defects identified. No signifi cant air-trapping seen. Perfusion images show no defects suspicious for pulmonary emboli. There is normal diminished activit y corresponding to the cardiac silhouette. Diminished activity on the lateral and oblique views relat es to prominent body soft tissues attenuating the activity. IMPRESSION: No suspicion for pulmonary embolic disease. Ventilation imaging shows no focal defect or air trapping.
[2020-07-12 13:38] VITALS: TEMP 97.3
[2020-07-12 16:36] VITALS: BP 160/90
--- NOTE | 2020-07-12 17:05 | P.DS ---
Admission Date: 07/12/20 Discharge Date: 07/12/20 Primary Care Provider: none Disposition: ROUTINE DISCHARGE Discharge Condition: FAIR Reason for Admission: HTN urgency Consultations: Cardiology-Dr. Atkins - Problems (1) Hypertensive urgency Current Visit: Yes Status: Acute (2) UTI (urinary tract infection) Current Visit: Yes Status: Acute Qualifiers: Urinary tract infection type: site unspecified Hematuria presence: with hematuria Qualified Code(s): N39.0 - Urinary tract infection, site not specified; R31.9 - Hematuria, unspecified (3) Morbid obesity Current Visit: Yes Status: Chronic (4) DEEPAK (obstructive sleep apnea) Current Visit: Yes Status: Chronic Brief History of Present Illness: 45-year-old morbidly obese woman with a history of obstructive sleep apnea presented to the emergency department with a complaint of progressive shortness of breath. Patient also reported orthopnea. She is status post hysterectomy but was complaining of bleeding per vagina. She was also complaining of urinary symptoms including dysuria, increased urinary frequency and nocturia. Initial troponin done in the ED negative. Her D-dimer was elevated but CTA thorax could not be performed due to elevated creatinine. UA suggested the presence of UTI. Patient was admitted for further management. Hospital Course: Patient admitted to the medical floor. She was started on IV Rocephin for UTI. Urine culture is pending to be followed. Patient be prescribed oral ciprofloxacin to continue treatment for the UTI. Venous Doppler of the lower extremities and ventilation-perfusion scan were done. Venous Doppler was negative for DVT. Ventilation-perfusion scan did not show any suspicion for pulmonary embolism. Noted patient's blood pressure was severely elevated in the ED with systolic up to 201. She has a history of obstructive sleep and has been noncompliant with CPAP use and antihypertensives. Patient started on amlodipine during the hospital stay. Her systolic blood pr essure improved to 160. She is prescribed amlodipine and metoprolol for hypertension. Patient seen and evaluated by cardiology. Echocardiogram was performed which per Dr. Atkins is unremarkable. She reported wiping blood from her genital area and diffuse disease vaginal bleeding. Patient has a history of hysterectomy and should not be experiencing any menstruation. She is informed to follow with a retail sales clerk for speculum examination of the vagina and cervix. The bleeding could also be related to UTI. She is currently receiving treatment for UTI. Vital Signs/Physical Exam: Temp Pulse Resp BP Pulse Ox 97.3 F 106 H 20 160/90 H 96 07/12/20 12:00 07/12/20 12:07 07/12/20 12:00 07/12/20 16:35 07/12/20 12:00 General: Alert, In no apparent distress, Oriented x3, Obese HEENT: Mucous membr. moist/pink Neck: Supple, JVD not distended Respiratory: Clear to auscultation bilaterally, Diminished Cardiovascular: No edema, Normal S1 S2, Other (Tachycardia) Gastrointestinal: Normal bowel sounds, Soft and benign, Non-distended, No tenderness Musculoskeletal: No swelling, No tenderness Integumentary: No rashes Neurological: Normal strength at 5/5 x4 extr, Cranial nerves 3-12 intact Laboratory Data at Discharge: WBC 11.60 K/uL (4.3-10.9) H 07/11/20 23:30 Hgb 13.2 g/dL (12.0-15.0) 07/11/20 23:30 Hct 42.0 % (36.0-45.0) 07/11/20 23:30 Plt Count 316 K/uL (152-406) 07/11/20 23:30 PT 12.0 SECONDS (9.5-12.5) 07/12/20 00:00 INR 1.04 07/12/20 00:00 Sodium 140 mmol/L (136-145) 07/12/20 05:38 Potassium 3.6 mmol/L (3.5-5.1) 07/12/20 05:38 BUN 15 mg/dL (7-18) 07/12/20 05:38 Creatinine 1.36 mg/dL (0.55-1.3) H 07/12/20 05:38 Glucose 142 mg/dL (74-106) H 07/12/20 05:38 Phosphorus 3.8 mg/dL (2.5-4.9) 07/12/20 05:38 Magnesium Cancelled 07/12/20 01:15 Total Bilirubin Cancelled 07/12/20 01:15 AST Cancelled 07/12/20 01:15 ALT Cancelled 07/12/20 01:15 Alkaline Phosphatase Cancelled 07/12/20 01:15 Home Medications: Amlodipine [Norvasc*] 10 mg PO DAILY #30 tab 07/12/20 Aspirin [Aspirin EC 81 MG] 81 mg PO DAILY #30 tablet. 07/12/20 Ciprofloxacin HCl 500 mg PO BID #6 tablet 07/12/20 Metoprolol Tartrate 25 mg PO BID #60 tablet 07/12/20 Multivitamin [Multivitamins] 1 tab PO DAILY 07/12/20 New Medications: Aspirin [Aspirin EC 81 MG] 81 mg PO DAILY #30 tablet. Ciprofloxacin HCl 500 mg PO BID #6 tablet Metoprolol Tartrate 25 mg PO BID #60 tablet Amlodipine [Norvasc*] 10 mg PO DAILY #30 tab Diet: AHA Activity: Ad shelby Followup: NONE,NONE [Primary Care Provider] - 1-2 Weeks Time spent managing pt's care (in minutes): 36
[2020-07-13] MEDS ORDERED: CEFTRIAXONE 1 GM/NS 50 ML 1 GM/50 ML BAG IV SCH (06:00)
--- NOTE | 2020-07-13 10:40 | CON ---
Date of Consultation: 07/12/2020 Reason For Consultation: Hypertensive crisis. She has had vaginal bleeding and knee pain and elevated blood pressure 166/78. She denied any chest pain nausea, vomiting. Past Medical History: As stated above. Allergies: NONE. Review of Systems: Negative. SOCHX Negative. Medications: At home are none. Physical Examination: Vital Signs: She weighed 312 pounds. her blood pressure 166/78. afebrile. Extremities: Revealed trace edema. Diagnostic Data: Showed LVH. Impression And Plan: 1.Hypertension. 2.Obesity. 3.Vaginal bleeding, 4.Weakness. 5.Knee pain. 6.LVH. 7.Renal insufficiency It is reasonable to get a 2D echocardiogram today to rule out hypertensive cardiomyopathy. I think she should be on a low-dose VANESSA inhibitor as well as a beta-lisa to control her heart rate and hel p with the blood pressure as well. I think she needs to have followup on a regular basis with her [facility] physician to watch her weight and her kidney function. I think her D-dimer elevation is s econdary to her hypertension. She can go home today after echocardiogram. I will be happy to see he r in the office as an outpatient. CA/DONALD Voice ID: [id number] Report ID: [id number]
--- NOTE | 2020-07-13 13:29 | ECHO ---
HEIGHT: 5 ft 1 in WEIGHT: 312 lb 6.4 oz DATE OF STUDY: 07/12/[address]: Haja Atkins MD 2-DIMENSIONAL: YES M.MODE: YES DOPPLER: YES COLOR FLOW: YES TDS: PORTABLE: DEFINITY: BUBBLE STUDY: DIAGNOSIS: CONGESTIVE HEART FAILURE CARDIAC HISTORY: CATHERIZATION: NO SURGERY: NO PROSTHETIC VALVE: NO PACEMAKER: NO MEASUREMENTS (cm) DIASTOLIC (NORMALS) SYSTOLIC (NORMALS) IVSd 1.3 (0.6-1.2) LA Diam 2.7 (1.9-4.0) LVEF 59% LVIDd 4.2 (3.5-5.7) LVIDs 2.9 (2.0-3.5) %FS 31% LVPWd 1.4 (0.6-1.2) Ao Diam 2.5 (2.0-3.7) 2 DIMENSIONAL ASSESSMENT: RIGHT ATRIUM: NORAML LEFT ATRIUM: NORMAL RIGHT VENTRICLE: NORAML LEFT VENTRICLE: LEFT VENTRICULAR HYPERTROPHY TRICUSPID VALVE: NORMAL MITRAL VALVE: NORMAL PULMONIC VALVE: NORMAL AORTIC VALVE: NORMAL PERICARDIAL EFFUSION: NONE AORTIC ROOT: NORMAL LEFT VENTRICULAR WALL MOTION: NORMAL DOPPLER/COLOR FLOW: NORMAL COMMENTS: LEFT VENTRICULAR HYPERTROPHY. NO WALL MOTION ABNORMALITY. NO EFFUSION. TECHNOLOGIST: ROSALINA SHAY
== END 2020-07-12 18:33 | disposition home or self-care (01) | DRG 690 ==
LOC: ER 23:07 → ERHOLD 07-12 04:05 → 2ND 07-12 04:41
PROVIDERS: ADMIT Internal Medicine; ATTEND Internal Medicine
DX: N39.0 Urinary tract infection, site not specified (principal); Z68.43 Body mass index [BMI] 50.0-59.9, adult; I16.0 Hypertensive urgency; E66.01 Morbid (severe) obesity due to excess calories; I12.9 Hypertensive chronic kidney disease with stage 1 through stage 4 chronic kidney disease, or unspecified chronic kidney disease; N18.30 Chronic kidney disease, stage 3 unspecified; N93.9 Abnormal uterine and vaginal bleeding, unspecified; G47.33 Obstructive sleep apnea (adult) (pediatric); R06.01 Orthopnea; R31.9 Hematuria, unspecified; Z90.710 Acquired absence of both cervix and uterus; Z91.14 Patient's other noncompliance with medication regimen; Z90.49 Acquired absence of other specified parts of digestive tract; Z20.822 Contact with and (suspected) exposure to COVID-19
CPT/HCPCS: 36415; 71045; 74176; 76377; 78582; 80048; 80076; 81003; 81015; 83036; 83735; 83880; 84100; 84439; 84443; 84484; 85025; 85379; 85610; 87086; 87088; 93005; 93306; 93970; 94760; 96361; 96374; 96375; 99285; A9540; A9558; J0360; J0696; J1644; J1940; J7030; U0003